=== PATIENT | female | born 1950 | race Caucasian/White ===

== ENCOUNTER 2019-12-22 13:02 | Day surgery (SDC) | payer MEDICARE, OTHER ==
[2019-12-22] MEDS: Nozin Nasal Sanitizer NASBOTH SCH ×2 (08:57→20:49)
[~2019-12-22 13:02] MED LIST: Acetaminophen 325 MG Tab PO PRN; Ketorolac 30 MG/ML SDV IVPUSH SCH; Lactated Ringers 1,000 ML IV SCH; Lactated Ringers 1,000 ML ONE; Magnesium Hydroxide 400 MG/5 ML Susp 30 ML Cup PO PRN; Midazolam 1 MG/ML 2 ML SDV ONE; Povidone-Iodine 10% Soln 118.25 ML Bottle ONE; Propofol 200 MG/20 ML SDV ONE; ceFAZolin 1 GM in Sodium Chloride 0.9% 50 ML IV SCH; ceFAZolin 2 GM in Premix Bag 1 BAG IV ONE; fentaNYL 100 MCG/2 ML SDV ONE
[2019-12-22] MEDS ORDERED: Albuterol 8 GM Inhaler INH PRN (13:08)
[2019-12-22] MEDS ORDERED: Morphine 2 MG/ML SYRINGE IVPUSH ONE (13:17)
[2019-12-22] MEDS ORDERED: Acetaminophen 1,000 MG in Premix Bag 1 BAG IV ONE (13:50)
[2019-12-22] MEDS ORDERED: Gabapentin 300 MG Cap PO SCH (14:00)
[2019-12-22] MEDS ORDERED: Acetaminophen/HYDROcodone 325-5 MG Tab PO PRN (14:00)
[2019-12-22] MEDS ORDERED: hydrOXYzine HCL 100 MG/2 ML SDV IM ONE (14:10)
--- NOTE | 2019-12-22 14:20 | CR ---
Knee 1V or 2V Rt CLINICAL HISTORY: Postop FINDINGS: Patient is status post recent 3 component total knee arthroplasty. Components appear well seated. There is intra-articular subcutaneous air. Impression: Postop knee arthroplasty
[2019-12-22] MEDS: Morphine 2 MG/ML SYRINGE IVPUSH PRN ×2 (15:05→20:43)
[2019-12-22] MEDS: Gabapentin 300 MG Cap PO SCH ×2 (16:08→20:49)
[2019-12-22] MEDS: Ketorolac 30 MG/ML SDV IVPUSH SCH (16:09)
[2019-12-22] MEDS: Acetaminophen/oxyCODONE 325-5 MG Tab PO PRN ×2 (17:14→22:04)
[2019-12-22] MEDS: Sodium Chloride 0.9% 1,000 ML IV SCH (17:16)
[2019-12-22] MEDS: ceFAZolin 1 GM in Premix Bag 1 BAG IV SCH (17:43)
[2019-12-22] MEDS: Gemfibrozil 600 MG Tab PO SCH (20:49)
[2019-12-22] MEDS: Docusate Sodium 100 MG Cap PO SCH (20:49)
[2019-12-22] MEDS ORDERED: Docusate Sodium 100 MG Cap PO SCH (21:00)
[2019-12-22] MEDS ORDERED: Non-Formulary Medication 1 Each (Travoprost [Travatan Z 0.004% Ophth Soln] 1 DROP) EYEBOTH SCH ×2 (21:00)
[2019-12-22] MEDS ORDERED: Gemfibrozil 600 MG Tab PO SCH (21:00)
[2019-12-23] MEDS: Ketorolac 30 MG/ML SDV IVPUSH SCH ×3 (00:55→16:09)
[2019-12-23] MEDS: Morphine 2 MG/ML SYRINGE IVPUSH PRN ×3 (00:58→11:55)
[2019-12-23] MEDS: ceFAZolin 1 GM in Premix Bag 1 BAG IV SCH ×2 (01:01→10:55)
[2019-12-23] MEDS: Acetaminophen/oxyCODONE 325-5 MG Tab PO PRN ×6 (01:55→22:42)
[2019-12-23] MEDS: Pantoprazole 40 MG Tab.CR PO SCH (07:22)
[2019-12-23] MEDS ORDERED: Pantoprazole 40 MG Tab.CR PO SCH (09:00)
[2019-12-23] MEDS ORDERED: Aspirin 325 MG Tab.EC PO SCH ×2 (09:00)
[2019-12-23] MEDS ORDERED: Furosemide 20 MG Tab PO SCH (09:00)
[2019-12-23] MEDS ORDERED: Enoxaparin 30 MG/0.3 ML Syringe SUBCUT SCH (09:00)
[2019-12-23] MEDS ORDERED: Losartan 50 MG Tab PO SCH (09:00)
[2019-12-23] MEDS ORDERED: amLODIPine 10 MG Tab PO SCH (09:00)
[2019-12-23] MEDS ORDERED: Isosorbide Mononitrate 30 MG Tab.ER PO SCH ×2 (09:00)
[2019-12-23] MEDS ORDERED: AMBRISENTAN 10 MG PO SCH ×2 (09:00)
[2019-12-23] MEDS ORDERED: Citalopram 20 MG Tab PO SCH ×2 (09:00)
[2019-12-23] MEDS: Nozin Nasal Sanitizer NASBOTH SCH ×2 (09:02→20:21)
[2019-12-23] MEDS: amLODIPine 10 MG Tab PO SCH (09:03)
[2019-12-23] MEDS: Aspirin 81 MG Tab.EC PO SCH (09:05)
[2019-12-23] MEDS: Losartan 50 MG Tab PO SCH (09:06)
[2019-12-23] MEDS: Furosemide 40 MG Tab PO SCH (09:07)
[2019-12-23] MEDS: Gemfibrozil 600 MG Tab PO SCH ×2 (09:07→20:28)
[2019-12-23] MEDS: Docusate Sodium 100 MG Cap PO SCH ×2 (09:07→20:22)
[2019-12-23] MEDS: Gabapentin 300 MG Cap PO SCH ×3 (09:08→20:29)
[2019-12-23] MEDS: Enoxaparin 30 MG/0.3 ML Syringe SUBCUT SCH (09:08)
[2019-12-23] MEDS: Sodium Chloride 0.9% 1,000 ML IV SCH ×2 (10:19→18:45)
[2019-12-23] MEDS: DORZOLAMIDE 2% EYEBOTH SCH ×4 (10:49→20:29)
[2019-12-23] MEDS: AMBRISENTAN 10 MG PO SCH (12:01)
[2019-12-23] MEDS: Cyclobenzaprine 10 MG Tab PO SCH ×2 (13:19→20:27)
[2019-12-23] MEDS: Citalopram 20 MG Tab PO SCH (20:27)
[2019-12-23] MEDS: OPTH EYEBOTH SCH (20:29)
[2019-12-23] MEDS: TRAVATAN Z 0.004% EYEBOTH SCH (20:29)
[2019-12-23] MEDS: Isosorbide Mononitrate 30 MG Tab.ER PO SCH (20:30)
[2019-12-24] MEDS: Ketorolac 30 MG/ML SDV IVPUSH SCH (00:47)
[2019-12-24] MEDS: Sodium Chloride 0.9% 1,000 ML IV SCH (02:45)
[2019-12-24] MEDS: Acetaminophen/oxyCODONE 325-5 MG Tab PO PRN ×4 (07:22→19:47)
[2019-12-24] MEDS: Pantoprazole 40 MG Tab.CR PO SCH (08:00)
[2019-12-24] MEDS: Nozin Nasal Sanitizer NASBOTH SCH ×2 (08:36→21:38)
[2019-12-24] MEDS: Enoxaparin 30 MG/0.3 ML Syringe SUBCUT SCH (08:37)
[2019-12-24] MEDS: Docusate Sodium 100 MG Cap PO SCH ×2 (08:41→21:40)
[2019-12-24] MEDS: Aspirin 81 MG Tab.EC PO SCH (08:42)
[2019-12-24] MEDS: Cyclobenzaprine 10 MG Tab PO SCH ×3 (08:42→21:41)
[2019-12-24] MEDS: Furosemide 40 MG Tab PO SCH (08:43)
[2019-12-24] MEDS: Gabapentin 300 MG Cap PO SCH ×3 (08:44→21:40)
[2019-12-24] MEDS: Gemfibrozil 600 MG Tab PO SCH ×2 (08:44→21:41)
[2019-12-24] MEDS: DORZOLAMIDE 2% EYEBOTH SCH ×2 (08:46→21:47)
[2019-12-24] MEDS: amLODIPine 10 MG Tab PO SCH (14:17)
[2019-12-24] MEDS: Losartan 50 MG Tab PO SCH (14:17)
[2019-12-24] MEDS: AMBRISENTAN 10 MG PO SCH (14:18)
[2019-12-24] MEDS: OPTH EYEBOTH SCH (21:40)
[2019-12-24] MEDS: TRAVATAN Z 0.004% EYEBOTH SCH (21:40)
[2019-12-24] MEDS: Isosorbide Mononitrate 30 MG Tab.ER PO SCH (21:41)
[2019-12-24] MEDS: Citalopram 20 MG Tab PO SCH (21:42)
[2019-12-25] MEDS: Acetaminophen/oxyCODONE 325-5 MG Tab PO PRN ×3 (04:08→13:07)
[2019-12-25] MEDS: Nozin Nasal Sanitizer NASBOTH SCH (08:58)
[2019-12-25] MEDS: Aspirin 81 MG Tab.EC PO SCH (08:59)
[2019-12-25] MEDS: Docusate Sodium 100 MG Cap PO SCH (08:59)
[2019-12-25] MEDS: Cyclobenzaprine 10 MG Tab PO SCH (08:59)
[2019-12-25] MEDS: Pantoprazole 40 MG Tab.CR PO SCH (08:59)
[2019-12-25] MEDS: Furosemide 40 MG Tab PO SCH (08:59)
[2019-12-25] MEDS: Gabapentin 300 MG Cap PO SCH (09:00)
[2019-12-25] MEDS: Gemfibrozil 600 MG Tab PO SCH (09:00)
[2019-12-25] MEDS: Enoxaparin 30 MG/0.3 ML Syringe SUBCUT SCH (09:00)
[2019-12-25] MEDS: amLODIPine 10 MG Tab PO SCH (09:01)
[2019-12-25] MEDS: Losartan 50 MG Tab PO SCH (09:01)
[2019-12-25] MEDS: DORZOLAMIDE 2% EYEBOTH SCH (09:01)
[2019-12-25] MEDS: AMBRISENTAN 10 MG PO SCH (09:01)
[2019-12-25 11:16] VITALS: BP 97/60; PULSE 81
--- NOTE | 2019-12-25 12:47 | PCM.SURGPN ---
- General Info Date of Service: 12/23/19 Date of Surgery/Procedure: 12/22/19 POD#: 1 Functional Status: Reports: Pain Controlled, Tolerating Diet, Ambulating, Urinating - Review of Systems General: Reports: No Symptoms HEENT: Reports: No Symptoms Pulmonary: Reports: No Symptoms Cardiovascular: Reports: No Symptoms Gastrointestinal: Reports: No Symptoms Genitourinary: Reports: No Symptoms Musculoskeletal: Reports: Leg Pain Skin: Reports: No Symptoms Neurological: Reports: No Symptoms Psychiatric: Reports: No Symptoms - Patient Data Vitals - Most Recent: Last Vital Signs Temp 36.1 C 12/25/19 11:15 Pulse 81 12/25/19 11:15 Resp 16 12/25/19 11:15 BP 97/60 12/25/19 11:15 Pulse Ox 92 L 12/25/19 11:15 Weight - Most Recent: 62.596 kg I&O - Last 24 Hours: Intake & Output 12/24/19 12/25/19 12/25/19 22:59 06:59 14:59 Intake Total 600 200 400 Balance 600 200 400 Med Orders - Current: Current Medications Acetaminophen (Tylenol) 650 mg PO Q4H PRN PRN Reason: Pain/Fever Hydrocodone Bitart/Acetaminophen ([place] 325-5 Mg) 1 tab PO Q3H PRN PRN Reason: Pain (mild 1-3) Albuterol (Ventolin Hfa) 0 gm INH Q4H PRN PRN Reason: Shortness of Breath Amlodipine Besylate (Norvasc) 10 mg PO DAILY [facility] Last Admin: 12/25/19 09:01 Dose: Not Given Aspirin (Halfprin) 81 mg PO DAILY [facility] Last Admin: 12/25/19 08:59 Dose: 81 mg Bandage/Support Products ( Nasal Drafter Landscape) 1 applic NASBOTH BID [facility] Last Admin: 12/25/19 08:58 Dose: 1 applicful Citalopram Hydrobromide (Celexa) 20 mg PO BEDTIME [facility] Last Admin: 12/24/19 21:42 Dose: 20 mg Cyclobenzaprine HCl (Flexeril) 10 mg PO TID [facility] Last Admin: 12/25/19 08:59 Dose: 10 mg Docusate Sodium (Colace) 100 mg PO BID [facility] Last Admin: 12/25/19 08:59 Dose: 100 mg Dorzolamide HCl (Trusopt 2% Ophth Soln) 0 ml EYEBOTH BID [facility] Last Admin: 12/25/19 09:01 Dose: Not Given Enoxaparin Sodium (Lovenox) 30 mg SUBCUT DAILY [facility] Last Admin: 12/25/19 09:00 Dose: 30 mg Furosemide (Lasix) 40 mg PO DAILY [facility] Last Admin: 12/25/19 08:59 Dose: 40 mg Gabapentin (Neurontin) 300 mg PO TID [facility] Last Admin: 12/25/19 09:00 Dose: 300 mg Gemfibrozil (Lopid) 600 mg PO BID [facility] Last Admin: 12/25/19 09:00 Dose: 600 mg Isosorbide Mononitrate (Imdur) 30 mg PO BEDTIME [facility] Last Admin: 12/24/19 21:41 Dose: 30 mg Losartan Potassium (Cozaar) 50 mg PO DAILY [facility] Last Admin: 12/25/19 09:01 Dose: Not Given Magnesium Hydroxide (Milk Of Magnesia) 30 ml PO BID PRN PRN Reason: Constipation Morphine Sulfate (Morphine) 2 mg IVPUSH Q1H PRN PRN Reason: Breakthrough Pain Last Admin: 12/23/19 11:55 Dose: 2 mg Oxycodone/Acetaminophen (Percocet 325-5 Mg) 2 tab PO Q4H PRN PRN Reason: Pain Last Admin: 12/25/19 08:23 Dose: 2 tab Pantoprazole Sodium (Protonix) 40 mg PO ACBREAKFAST [facility] Last Admin: 12/25/19 08:59 Dose: 40 mg Travatan Z 0.004% (Opth Soln (Ptom)) 0 each EYEBOTH BEDTIME [facility] Last Admin: 12/24/19 21:40 Dose: 1 each Ambrisentan 10mg Tab ((Ptom)) 0 each PO DAILY [facility] Last Admin: 12/25/19 09:01 Dose: Not Given Discontinued Medications Amlodipine Besylate (Norvasc) 10 mg PO DAILY [facility] Aspirin (Ecotrin) 81 mg PO DAILY [facility] Citalopram Hydrobromide (Celexa) 20 mg PO DAILY [facility] Citalopram Hydrobromide (Celexa) 20 mg PO DAILY [facility] Docusate Sodium (Colace) 100 mg PO BID [facility] Enoxaparin Sodium (Lovenox) 30 mg SUBCUT DAILY [facility] Fentanyl (Sublimaze) Confirm Administered Dose 100 mcg .ROUTE .K-MED ONE Stop: 12/22/19 08:39 Fentanyl (Sublimaze) Confirm Administered Dose 100 mcg .ROUTE .[facility] ONE Stop: 12/22/19 12:50 Furosemide (Lasix) 40 mg PO DAILY [facility] Gabapentin (Neurontin) 300 mg PO TID [facility] Last Admin: 12/22/19 15:00 Dose: Not Given Gemfibrozil (Lopid) 600 mg PO BID [facility] Hydroxyzine HCl (Vistaril) 50 mg IM ONETIME ONE Stop: 12/22/19 14:11 Last Admin: 12/22/19 14:16 Dose: 50 mg Cefazolin Sodium/Dextrose 2 gm (/ Premix) 50 mls @ 100 mls/hr IV ONETIME ONE Stop: 12/22/19 09:59 Last Admin: 12/22/19 10:57 Dose: 100 mls/hr Lactated Ringer's (Ringers, Lactated) 1,000 mls @ 75 mls/hr IV ASDIRECTED [facility] Last Admin: 12/22/19 08:49 Dose: 75 mls/hr Lactated Ringer's (Ringers, Lactated) Confirm Administered Dose 1,000 mls @ as directed .ROUTE .[facility] ONE Stop: 12/22/19 11:26 Tranexamic Acid 620 mg/ Sodium (Chloride) 56.2 mls @ 224.8 mls/hr IV ONETIME ONE Stop: 12/22/19 11:59 Last Admin: 12/22/19 12:09 Dose: 224.8 mls/hr Cefazolin Sodium 1 gm/ Sodium (Chloride) 50 mls @ 200 mls/hr IV Q8H [facility] Stop: 12/23/19 05:14 Last Admin: 12/22/19 14:59 Dose: Not Given Sodium Chloride (Normal Saline) 1,000 mls @ 125 mls/hr IV ASDIRECTED [facility] Last Admin: 12/24/19 02:45 Dose: 125 mls/hr Acetaminophen 1,000 mg/ Premix 100 mls @ 400 mls/hr IV NOW ONE Stop: 12/22/19 14:04 Last Admin: 12/22/19 13:54 Dose: 400 mls/hr Cefazolin Sodium/Dextrose 1 gm (/ Premix) 50 mls @ 100 mls/hr IV Q8H [facility] Stop: 12/23/19 10:29 Last Admin: 12/23/19 10:55 Dose: 100 mls/hr Isosorbide Mononitrate (Imdur) 30 mg PO DAILY [facility] Ketorolac Tromethamine (Toradol) 15 mg IVPUSH Q8H [facility] Stop: 12/23/19 21:01 Last Admin: 12/22/19 14:59 Dose: Not Given Ketorolac Tromethamine (Toradol) 15 mg IVPUSH Q8H [facility] Stop: 12/24/19 00:01 Last Admin: 12/24/19 00:47 Dose: 15 mg Losartan Potassium (Cozaar) 50 mg PO DAILY [facility] Midazolam HCl (Versed 1 Mg/Ml) Confirm Administered Dose 2 mg .ROUTE .STK-MED ONE Stop: 12/22/19 08:39 Morphine Sulfate (Morphine) 3 mg IVPUSH ONETIME ONE Stop: 12/22/19 13:18 Last Admin: 12/22/19 13:24 Dose: 3 mg Non-Formulary Medication (Ambrisentan [Ambrisentan]) 10 mg PO DAILY [facility] Non-Formulary Medication (Travoprost [Travatan Z 0.004% Ophth Soln]) 1 drop EYEBOTH BEDTIME [facility] Pantoprazole Sodium (Protonix) 40 mg PO DAILY [facility] Povidone Iodine (Betadine 10% Soln) Confirm Administered Dose 1 ml .ROUTE .STK- MED ONE Stop: 12/22/19 06:58 Last Admin: 12/22/19 11:49 Dose: 15 ml Propofol (Diprivan 20 Ml) Confirm Administered Dose 200 mg .ROUTE .STK-MED ONE Stop: 12/22/19 08:39 - Exam Wound/Incisions: Drainage (small spot of bloody drainage) General: Alert, Oriented HEENT: Pupils Equal Neck: Supple Lungs: Clear to Auscultation, Normal Respiratory Effort Cardiovascular: Regular Rate, Regular Rhythm GI/Abdominal Exam: Normal Bowel Sounds, Soft, Non-Tender, No Distention Extremities: Joint Swelling, Limited Range of Motion Skin: Warm, Dry Neurological: No New Focal Deficit Psy/Mental Status: Alert, Normal Affect, Normal Mood Sepsis Event Note - Evaluation Sepsis Screening Result: No Definite Risk - Focused Exam Vital Signs: Vital Signs Temp Temp Pulse Resp BP Pulse Ox 12/25/19 11:15 36.1 C 81 16 97/60 92 L 12/25/19 07:58 35.7 C L 79 16 104/56 L 97 12/25/19 03:27 36.6 C 75 16 97/54 L 95 Date Exam was Performed: 12/25/19 Time Exam was Performed: 12:41 - Problem List & Annotations (1) Osteoarthritis, knee SNOMED Code(s): 155546023 Code(s): M17.10 - UNILATERAL PRIMARY OSTEOARTHRITIS, UNSPECIFIED KNEE Status: Acute Current Visit: Yes Qualifiers: Osteoarthritis type: post-traumatic Laterality: right Qualified Code(s): M17.31 - Unilateral post-traumatic osteoarthritis, right knee (2) Status post total right knee replacement SNOMED Code(s): 7294371949095, 3943503309079 Code(s): Z96.651 - PRESENCE OF RIGHT ARTIFICIAL KNEE JOINT Status: Acute Current Visit: Yes (3) Closed fracture of lateral portion of right tibial plateau SNOMED Code(s): 642773256, 03649756186081548 Code(s): S82.121A - DISP FX OF LATERAL CONDYLE OF RIGHT TIBIA, INIT FOR CLOS FX Status: Acute Current Visit: No Qualifiers: Encounter type: subsequent encounter Fracture healing: with malunion Qualified Code(s): S82.121P - Displaced fracture of lateral condyle of right tibia, subsequent encounter for closed fracture with malunion - Problem List Review Problem List Initiated/Reviewed/Updated: Yes - My Orders Last 24 Hours: Active Orders 24 hr Category Date Time Status Ready for Discharge [RC] PER UNIT ROUTINE Care 12/25/19 12:40 Ordered Medication Orders Acetaminophen (Tylenol) 650 mg PO Q4H PRN PRN Reason: Pain/Fever Hydrocodone Bitart/Acetaminophen ([place] 325-5 Mg) 1 tab PO Q3H PRN PRN Reason: Pain (mild 1-3) Albuterol (Ventolin Hfa) 0 gm INH Q4H PRN PRN Reason: Shortness of Breath Amlodipine Besylate (Norvasc) 10 mg PO DAILY [facility] Last Admin: 12/25/19 09:01 Dose: Not Given Admin: 12/24/19 14:17 Dose: Admin: 12/23/19 09:03 Dose: 10 mg Aspirin (Halfprin) 81 mg PO DAILY [facility] Last Admin: 12/25/19 08:59 Dose: 81 mg Admin: 12/24/19 08:42 Dose: 81 mg Admin: 12/23/19 09:05 Dose: 81 mg Bandage/Support Products ( Nasal Drafter Landscape) 1 applic NASBOTH BID [facility] Last Admin: 12/25/19 08:58 Dose: 1 applicful Admin: 12/24/19 21:38 Dose: 1 applicful Admin: 12/24/19 08:36 Dose: 1 applicful Admin: 12/23/19 20:21 Dose: 1 applicful Admin: 12/23/19 09:02 Dose: 1 applicful Admin: 12/22/19 20:49 Dose: 1 applicful Admin: 12/22/19 08:57 Dose: 3 applicful Citalopram Hydrobromide (Celexa) 20 mg PO BEDTIME [facility] Last Admin: 12/24/19 21:42 Dose: 20 mg Admin: 12/23/19 20:27 Dose: 20 mg Cyclobenzaprine HCl (Flexeril) 10 mg PO TID [facility] Last Admin: 12/25/19 08:59 Dose: 10 mg Admin: 12/24/19 21:41 Dose: 10 mg Admin: 12/24/19 14:16 Dose: 10 mg Admin: 12/24/19 08:42 Dose: 10 mg Admin: 12/23/19 20:27 Dose: 10 mg Admin: 12/23/19 13:19 Dose: 10 mg Docusate Sodium (Colace) 100 mg PO BID [facility] Last Admin: 12/25/19 08:59 Dose: 100 mg Admin: 12/24/19 21:40 Dose: 100 mg Admin: 12/24/19 08:41 Dose: 100 mg Admin: 12/23/19 20:22 Dose: 100 mg Admin: 12/23/19 09:07 Dose: 100 mg Admin: 12/22/19 20:49 Dose: 100 mg Dorzolamide HCl (Trusopt 2% Ophth Soln) 0 ml EYEBOTH BID [facility] Last Admin: 12/25/19 09:01 Dose: Not Given Admin: 12/24/19 21:47 Dose: Admin: 12/24/19 08:46 Dose: Not Given Admin: 12/23/19 20:29 Dose: Admin: 12/23/19 12:03 Dose: Admin: 12/23/19 12:01 Dose: Admin: 12/23/19 10:49 Dose: Enoxaparin Sodium (Lovenox) 30 mg SUBCUT DAILY [facility] Last Admin: 12/25/19 09:00 Dose: 30 mg Admin: 12/24/19 08:37 Dose: 30 mg Admin: 12/23/19 09:08 Dose: 30 mg Furosemide (Lasix) 40 mg PO DAILY [facility] Last Admin: 12/25/19 08:59 Dose: 40 mg Admin: 12/24/19 08:43 Dose: 40 mg Admin: 12/23/19 09:07 Dose: 40 mg Gabapentin (Neurontin) 300 mg PO TID [facility] Last Admin: 12/25/19 09:00 Dose: 300 mg Admin: 12/24/19 21:40 Dose: 300 mg Admin: 12/24/19 14:16 Dose: 300 mg Admin: 12/24/19 08:44 Dose: 300 mg Admin: 12/23/19 20:29 Dose: 300 mg Admin: 12/23/19 13:20 Dose: 300 mg Admin: 12/23/19 09:08 Dose: 300 mg Admin: 12/22/19 20:49 Dose: 300 mg Admin: 12/22/19 16:08 Dose: 300 mg Gemfibrozil (Lopid) 600 mg PO BID [facility] Last Admin: 12/25/19 09:00 Dose: 600 mg Admin: 12/24/19 21:41 Dose: 600 mg Admin: 12/24/19 08:44 Dose: 600 mg Admin: 12/23/19 20:28 Dose: 600 mg Admin: 12/23/19 09:07 Dose: 600 mg Admin: 12/22/19 20:49 Dose: 600 mg Isosorbide Mononitrate (Imdur) 30 mg PO BEDTIME [facility] Last Admin: 12/24/19 21:41 Dose: 30 mg Admin: 12/23/19 20:30 Dose: 30 mg Losartan Potassium (Cozaar) 50 mg PO DAILY [facility] Last Admin: 12/25/19 09:01 Dose: Not Given Admin: 12/24/19 14:17 Dose: Admin: 12/23/19 09:06 Dose: 50 mg Magnesium Hydroxide (Milk Of Magnesia) 30 ml PO BID PRN PRN Reason: Constipation Morphine Sulfate (Morphine) 2 mg IVPUSH Q1H PRN PRN Reason: Breakthrough Pain Last Admin: 12/23/19 11:55 Dose: 2 mg Admin: 12/23/19 08:55 Dose: 2 mg Admin: 12/23/19 00:58 Dose: 2 mg Admin: 12/22/19 20:43 Dose: 2 mg Admin: 12/22/19 15:05 Dose: 2 mg Oxycodone/Acetaminophen (Percocet 325-5 Mg) 2 tab PO Q4H PRN PRN Reason: Pain Last Admin: 12/25/19 08:23 Dose: 2 tab Admin: 12/25/19 04:08 Dose: 2 tab Admin: 12/24/19 19:47 Dose: 2 tab Admin: 12/24/19 15:34 Dose: 2 tab Admin: 12/24/19 11:27 Dose: 2 tab Admin: 12/24/19 07:22 Dose: 2 tab Admin: 12/23/19 22:42 Dose: 2 tab Admin: 12/23/19 18:41 Dose: 2 tab Admin: 12/23/19 14:25 Dose: 2 tab Admin: 12/23/19 10:32 Dose: 2 tab Admin: 12/23/19 06:27 Dose: 2 tab Admin: 12/23/19 01:55 Dose: 2 tab Admin: 12/22/19 22:04 Dose: 2 tab Admin: 12/22/19 17:14 Dose: 2 tab Pantoprazole Sodium (Protonix) 40 mg PO ACBREAKFAST [facility] Last Admin: 12/25/19 08:59 Dose: 40 mg Admin: 12/24/19 08:00 Dose: 40 mg Admin: 12/23/19 07:22 Dose: 40 mg Travatan Z 0.004% (Opth Soln (Ptom)) 0 each EYEBOTH BEDTIME [facility] Last Admin: 12/24/19 21:40 Dose: 1 each Admin: 12/23/19 20:29 Dose: 1 each Ambrisentan 10mg Tab ((Ptom)) 0 each PO DAILY [facility] Last Admin: 12/25/19 09:01 Dose: Not Given Admin: 12/24/19 14:18 Dose: Admin: 12/23/19 12:01 Dose: 1 each - Assessment Assessment (Free Text/Narrative):: Pain not very well controlled post op. Has not been up much yet, poor mobility. Has been up in chair with increased pain. No nausea. - Plan Plan (Free Text/Narrative):: Continue PT, dressing changed, mild/mod swelling, small spot of bloody drainage , no active drainage, adjust medications
--- NOTE | 2019-12-25 12:53 | PCM.SURGPN ---
- General Info Date of Service: 12/24/19 Date of Surgery/Procedure: 12/22/19 POD#: 2 Functional Status: Reports: Tolerating Diet, Ambulating, Urinating - Review of Systems General: Reports: No Symptoms HEENT: Reports: No Symptoms Pulmonary: Reports: No Symptoms Cardiovascular: Reports: No Symptoms Gastrointestinal: Reports: No Symptoms Genitourinary: Reports: No Symptoms Musculoskeletal: Reports: Leg Pain, Joint Swelling Skin: Reports: No Symptoms Neurological: Reports: No Symptoms Psychiatric: Reports: No Symptoms - Patient Data Vitals - Most Recent: Last Vital Signs Temp 36.1 C 12/25/19 11:15 Pulse 81 12/25/19 11:15 Resp 16 12/25/19 11:15 BP 97/60 12/25/19 11:15 Pulse Ox 92 L 12/25/19 11:15 Weight - Most Recent: 62.596 kg I&O - Last 24 Hours: Intake & Output 12/24/19 12/25/19 12/25/19 22:59 06:59 14:59 Intake Total 600 200 400 Balance 600 200 400 Med Orders - Current: Current Medications Acetaminophen (Tylenol) 650 mg PO Q4H PRN PRN Reason: Pain/Fever Hydrocodone Bitart/Acetaminophen (Tarzana 325-5 Mg) 1 tab PO Q3H PRN PRN Reason: Pain (mild 1-3) Albuterol (Ventolin Hfa) 0 gm INH Q4H PRN PRN Reason: Shortness of Breath Amlodipine Besylate (Norvasc) 10 mg PO DAILY [facility] Last Admin: 12/25/19 09:01 Dose: Not Given Aspirin (Halfprin) 81 mg PO DAILY [facility] Last Admin: 12/25/19 08:59 Dose: 81 mg Bandage/Support Products ( Nasal Foundry Technician) 1 applic NASBOTH BID [facility] Last Admin: 12/25/19 08:58 Dose: 1 applicful Citalopram Hydrobromide (Celexa) 20 mg PO BEDTIME [facility] Last Admin: 12/24/19 21:42 Dose: 20 mg Cyclobenzaprine HCl (Flexeril) 10 mg PO TID [facility] Last Admin: 12/25/19 08:59 Dose: 10 mg Docusate Sodium (Colace) 100 mg PO BID [facility] Last Admin: 12/25/19 08:59 Dose: 100 mg Dorzolamide HCl (Trusopt 2% Ophth Soln) 0 ml EYEBOTH BID [facility] Last Admin: 12/25/19 09:01 Dose: Not Given Enoxaparin Sodium (Lovenox) 30 mg SUBCUT DAILY [facility] Last Admin: 12/25/19 09:00 Dose: 30 mg Furosemide (Lasix) 40 mg PO DAILY [facility] Last Admin: 12/25/19 08:59 Dose: 40 mg Gabapentin (Neurontin) 300 mg PO TID [facility] Last Admin: 12/25/19 09:00 Dose: 300 mg Gemfibrozil (Lopid) 600 mg PO BID [facility] Last Admin: 12/25/19 09:00 Dose: 600 mg Isosorbide Mononitrate (Imdur) 30 mg PO BEDTIME [facility] Last Admin: 12/24/19 21:41 Dose: 30 mg Losartan Potassium (Cozaar) 50 mg PO DAILY [facility] Last Admin: 12/25/19 09:01 Dose: Not Given Magnesium Hydroxide (Milk Of Magnesia) 30 ml PO BID PRN PRN Reason: Constipation Morphine Sulfate (Morphine) 2 mg IVPUSH Q1H PRN PRN Reason: Breakthrough Pain Last Admin: 12/23/19 11:55 Dose: 2 mg Oxycodone/Acetaminophen (Percocet 325-5 Mg) 2 tab PO Q4H PRN PRN Reason: Pain Last Admin: 12/25/19 08:23 Dose: 2 tab Pantoprazole Sodium (Protonix) 40 mg PO ACBREAKFAST [facility] Last Admin: 12/25/19 08:59 Dose: 40 mg Travatan Z 0.004% (Opth Soln (Ptom)) 0 each EYEBOTH BEDTIME [facility] Last Admin: 12/24/19 21:40 Dose: 1 each Ambrisentan 10mg Tab ((Ptom)) 0 each PO DAILY [facility] Last Admin: 12/25/19 09:01 Dose: Not Given Discontinued Medications Amlodipine Besylate (Norvasc) 10 mg PO DAILY [facility] Aspirin (Ecotrin) 81 mg PO DAILY [facility] Citalopram Hydrobromide (Celexa) 20 mg PO DAILY [facility] Citalopram Hydrobromide (Celexa) 20 mg PO DAILY [facility] Docusate Sodium (Colace) 100 mg PO BID [facility] Enoxaparin Sodium (Lovenox) 30 mg SUBCUT DAILY [facility] Fentanyl (Sublimaze) Confirm Administered Dose 100 mcg .ROUTE .K-MED ONE Stop: 12/22/19 08:39 Fentanyl (Sublimaze) Confirm Administered Dose 100 mcg .ROUTE .[facility] ONE Stop: 12/22/19 12:50 Furosemide (Lasix) 40 mg PO DAILY [facility] Gabapentin (Neurontin) 300 mg PO TID [facility] Last Admin: 12/22/19 15:00 Dose: Not Given Gemfibrozil (Lopid) 600 mg PO BID [facility] Hydroxyzine HCl (Vistaril) 50 mg IM ONETIME ONE Stop: 12/22/19 14:11 Last Admin: 12/22/19 14:16 Dose: 50 mg Cefazolin Sodium/Dextrose 2 gm (/ Premix) 50 mls @ 100 mls/hr IV ONETIME ONE Stop: 12/22/19 09:59 Last Admin: 12/22/19 10:57 Dose: 100 mls/hr Lactated Ringer's (Ringers, Lactated) 1,000 mls @ 75 mls/hr IV ASDIRECTED [facility] Last Admin: 12/22/19 08:49 Dose: 75 mls/hr Lactated Ringer's (Ringers, Lactated) Confirm Administered Dose 1,000 mls @ as directed .ROUTE .[facility] ONE Stop: 12/22/19 11:26 Tranexamic Acid 620 mg/ Sodium (Chloride) 56.2 mls @ 224.8 mls/hr IV ONETIME ONE Stop: 12/22/19 11:59 Last Admin: 12/22/19 12:09 Dose: 224.8 mls/hr Cefazolin Sodium 1 gm/ Sodium (Chloride) 50 mls @ 200 mls/hr IV Q8H [facility] Stop: 12/23/19 05:14 Last Admin: 12/22/19 14:59 Dose: Not Given Sodium Chloride (Normal Saline) 1,000 mls @ 125 mls/hr IV ASDIRECTED [facility] Last Admin: 12/24/19 02:45 Dose: 125 mls/hr Acetaminophen 1,000 mg/ Premix 100 mls @ 400 mls/hr IV NOW ONE Stop: 12/22/19 14:04 Last Admin: 12/22/19 13:54 Dose: 400 mls/hr Cefazolin Sodium/Dextrose 1 gm (/ Premix) 50 mls @ 100 mls/hr IV Q8H [facility] Stop: 12/23/19 10:29 Last Admin: 12/23/19 10:55 Dose: 100 mls/hr Isosorbide Mononitrate (Imdur) 30 mg PO DAILY [facility] Ketorolac Tromethamine (Toradol) 15 mg IVPUSH Q8H [facility] Stop: 12/23/19 21:01 Last Admin: 12/22/19 14:59 Dose: Not Given Ketorolac Tromethamine (Toradol) 15 mg IVPUSH Q8H [facility] Stop: 12/24/19 00:01 Last Admin: 12/24/19 00:47 Dose: 15 mg Losartan Potassium (Cozaar) 50 mg PO DAILY [facility] Midazolam HCl (Versed 1 Mg/Ml) Confirm Administered Dose 2 mg .ROUTE .STK-MED ONE Stop: 12/22/19 08:39 Morphine Sulfate (Morphine) 3 mg IVPUSH ONETIME ONE Stop: 12/22/19 13:18 Last Admin: 12/22/19 13:24 Dose: 3 mg Non-Formulary Medication (Ambrisentan [Ambrisentan]) 10 mg PO DAILY [facility] Non-Formulary Medication (Travoprost [Travatan Z 0.004% Ophth Soln]) 1 drop EYEBOTH BEDTIME [facility] Pantoprazole Sodium (Protonix) 40 mg PO DAILY [facility] Povidone Iodine (Betadine 10% Soln) Confirm Administered Dose 1 ml .ROUTE .STK- MED ONE Stop: 12/22/19 06:58 Last Admin: 12/22/19 11:49 Dose: 15 ml Propofol (Diprivan 20 Ml) Confirm Administered Dose 200 mg .ROUTE .STK-MED ONE Stop: 12/22/19 08:39 - Exam Wound/Incisions: Drainage (small spot of drainage inferior incision after getting up yesterday) General: Alert, Oriented HEENT: Pupils Equal Neck: Supple Cardiovascular: Regular Rate, Regular Rhythm GI/Abdominal Exam: Normal Bowel Sounds, Soft, Non-Tender, No Distention Extremities: Joint Swelling, Limited Range of Motion Skin: Warm, Dry Neurological: No New Focal Deficit Psy/Mental Status: Alert, Normal Affect, Normal Mood Sepsis Event Note - Evaluation Sepsis Screening Result: No Definite Risk - Focused Exam Vital Signs: Vital Signs Temp Temp Pulse Resp BP Pulse Ox 12/25/19 11:15 36.1 C 81 16 97/60 92 L 12/25/19 07:58 35.7 C L 79 16 104/56 L 97 12/25/19 03:27 36.6 C 75 16 97/54 L 95 Date Exam was Performed: 12/25/19 Time Exam was Performed: 12:47 - Problem List & Annotations (1) Osteoarthritis, knee SNOMED Code(s): 404607704 Code(s): M17.10 - UNILATERAL PRIMARY OSTEOARTHRITIS, UNSPECIFIED KNEE Status: Acute Current Visit: Yes Qualifiers: Osteoarthritis type: post-traumatic Laterality: right Qualified Code(s): M17.31 - Unilateral post-traumatic osteoarthritis, right knee (2) Status post total right knee replacement SNOMED Code(s): 1238280422563, 3762962311001 Code(s): Z96.651 - PRESENCE OF RIGHT ARTIFICIAL KNEE JOINT Status: Acute Current Visit: Yes (3) Closed fracture of lateral portion of right tibial plateau SNOMED Code(s): 788728188, 31921628797770304 Code(s): S82.121A - DISP FX OF LATERAL CONDYLE OF RIGHT TIBIA, INIT FOR CLOS FX Status: Acute Current Visit: No Qualifiers: Encounter type: subsequent encounter Fracture healing: with malunion Qualified Code(s): S82.121P - Displaced fracture of lateral condyle of right tibia, subsequent encounter for closed fracture with malunion - Problem List Review Problem List Initiated/Reviewed/Updated: Yes - My Orders Last 24 Hours: Active Orders 24 hr Category Date Time Status Ready for Discharge [RC] PER UNIT ROUTINE Care 12/25/19 12:40 Ordered Medication Orders Acetaminophen (Tylenol) 650 mg PO Q4H PRN PRN Reason: Pain/Fever Hydrocodone Bitart/Acetaminophen (Tarzana 325-5 Mg) 1 tab PO Q3H PRN PRN Reason: Pain (mild 1-3) Albuterol (Ventolin Hfa) 0 gm INH Q4H PRN PRN Reason: Shortness of Breath Amlodipine Besylate (Norvasc) 10 mg PO DAILY [facility] Last Admin: 12/25/19 09:01 Dose: Not Given Admin: 12/24/19 14:17 Dose: Admin: 12/23/19 09:03 Dose: 10 mg Aspirin (Halfprin) 81 mg PO DAILY [facility] Last Admin: 12/25/19 08:59 Dose: 81 mg Admin: 12/24/19 08:42 Dose: 81 mg Admin: 12/23/19 09:05 Dose: 81 mg Bandage/Support Products ( Nasal Foundry Technician) 1 applic NASBOTH BID [facility] Last Admin: 12/25/19 08:58 Dose: 1 applicful Admin: 12/24/19 21:38 Dose: 1 applicful Admin: 12/24/19 08:36 Dose: 1 applicful Admin: 12/23/19 20:21 Dose: 1 applicful Admin: 12/23/19 09:02 Dose: 1 applicful Admin: 12/22/19 20:49 Dose: 1 applicful Admin: 12/22/19 08:57 Dose: 3 applicful Citalopram Hydrobromide (Celexa) 20 mg PO BEDTIME [facility] Last Admin: 12/24/19 21:42 Dose: 20 mg Admin: 12/23/19 20:27 Dose: 20 mg Cyclobenzaprine HCl (Flexeril) 10 mg PO TID [facility] Last Admin: 12/25/19 08:59 Dose: 10 mg Admin: 12/24/19 21:41 Dose: 10 mg Admin: 12/24/19 14:16 Dose: 10 mg Admin: 12/24/19 08:42 Dose: 10 mg Admin: 12/23/19 20:27 Dose: 10 mg Admin: 12/23/19 13:19 Dose: 10 mg Docusate Sodium (Colace) 100 mg PO BID [facility] Last Admin: 12/25/19 08:59 Dose: 100 mg Admin: 12/24/19 21:40 Dose: 100 mg Admin: 12/24/19 08:41 Dose: 100 mg Admin: 12/23/19 20:22 Dose: 100 mg Admin: 12/23/19 09:07 Dose: 100 mg Admin: 12/22/19 20:49 Dose: 100 mg Dorzolamide HCl (Trusopt 2% Ophth Soln) 0 ml EYEBOTH BID [facility] Last Admin: 12/25/19 09:01 Dose: Not Given Admin: 12/24/19 21:47 Dose: Admin: 12/24/19 08:46 Dose: Not Given Admin: 12/23/19 20:29 Dose: Admin: 12/23/19 12:03 Dose: Admin: 12/23/19 12:01 Dose: Admin: 12/23/19 10:49 Dose: Enoxaparin Sodium (Lovenox) 30 mg SUBCUT DAILY [facility] Last Admin: 12/25/19 09:00 Dose: 30 mg Admin: 12/24/19 08:37 Dose: 30 mg Admin: 12/23/19 09:08 Dose: 30 mg Furosemide (Lasix) 40 mg PO DAILY [facility] Last Admin: 12/25/19 08:59 Dose: 40 mg Admin: 12/24/19 08:43 Dose: 40 mg Admin: 12/23/19 09:07 Dose: 40 mg Gabapentin (Neurontin) 300 mg PO TID [facility] Last Admin: 12/25/19 09:00 Dose: 300 mg Admin: 12/24/19 21:40 Dose: 300 mg Admin: 12/24/19 14:16 Dose: 300 mg Admin: 12/24/19 08:44 Dose: 300 mg Admin: 12/23/19 20:29 Dose: 300 mg Admin: 12/23/19 13:20 Dose: 300 mg Admin: 12/23/19 09:08 Dose: 300 mg Admin: 12/22/19 20:49 Dose: 300 mg Admin: 12/22/19 16:08 Dose: 300 mg Gemfibrozil (Lopid) 600 mg PO BID [facility] Last Admin: 12/25/19 09:00 Dose: 600 mg Admin: 12/24/19 21:41 Dose: 600 mg Admin: 12/24/19 08:44 Dose: 600 mg Admin: 12/23/19 20:28 Dose: 600 mg Admin: 12/23/19 09:07 Dose: 600 mg Admin: 12/22/19 20:49 Dose: 600 mg Isosorbide Mononitrate (Imdur) 30 mg PO BEDTIME [facility] Last Admin: 12/24/19 21:41 Dose: 30 mg Admin: 12/23/19 20:30 Dose: 30 mg Losartan Potassium (Cozaar) 50 mg PO DAILY [facility] Last Admin: 12/25/19 09:01 Dose: Not Given Admin: 12/24/19 14:17 Dose: Admin: 12/23/19 09:06 Dose: 50 mg Magnesium Hydroxide (Milk Of Magnesia) 30 ml PO BID PRN PRN Reason: Constipation Morphine Sulfate (Morphine) 2 mg IVPUSH Q1H PRN PRN Reason: Breakthrough Pain Last Admin: 12/23/19 11:55 Dose: 2 mg Admin: 12/23/19 08:55 Dose: 2 mg Admin: 12/23/19 00:58 Dose: 2 mg Admin: 12/22/19 20:43 Dose: 2 mg Admin: 12/22/19 15:05 Dose: 2 mg Oxycodone/Acetaminophen (Percocet 325-5 Mg) 2 tab PO Q4H PRN PRN Reason: Pain Last Admin: 12/25/19 08:23 Dose: 2 tab Admin: 12/25/19 04:08 Dose: 2 tab Admin: 12/24/19 19:47 Dose: 2 tab Admin: 12/24/19 15:34 Dose: 2 tab Admin: 12/24/19 11:27 Dose: 2 tab Admin: 12/24/19 07:22 Dose: 2 tab Admin: 12/23/19 22:42 Dose: 2 tab Admin: 12/23/19 18:41 Dose: 2 tab Admin: 12/23/19 14:25 Dose: 2 tab Admin: 12/23/19 10:32 Dose: 2 tab Admin: 12/23/19 06:27 Dose: 2 tab Admin: 12/23/19 01:55 Dose: 2 tab Admin: 12/22/19 22:04 Dose: 2 tab Admin: 12/22/19 17:14 Dose: 2 tab Pantoprazole Sodium (Protonix) 40 mg PO ACBREAKFAST [facility] Last Admin: 12/25/19 08:59 Dose: 40 mg Admin: 12/24/19 08:00 Dose: 40 mg Admin: 12/23/19 07:22 Dose: 40 mg Travatan Z 0.004% (Opth Soln (Ptom)) 0 each EYEBOTH BEDTIME [facility] Last Admin: 12/24/19 21:40 Dose: 1 each Admin: 12/23/19 20:29 Dose: 1 each Ambrisentan 10mg Tab ((Ptom)) 0 each PO DAILY [facility] Last Admin: 12/25/19 09:01 Dose: Not Given Admin: 12/24/19 14:18 Dose: Admin: 12/23/19 12:01 Dose: 1 each - Assessment Assessment (Free Text/Narrative):: Doing a little better today, has been up for short distances, limited ROM, getting independent with transfers out of bed, pain better controlled - Plan Plan (Free Text/Narrative):: Continue PT, anticipate discharge to home tomorrow with outpatient PT.
--- NOTE | 2019-12-25 13:02 | PCM.DCSUM1 ---
Discharge Summary - Hospital Course HPI Initial Comments: 69 year old female with a history of lateral tibial plateau fracture with depressed articular fracture and subsequent valgus collapse admitted for total knee arthroplasty. Diagnosis: Stroke: No Modified [place] Scale: No Symptoms at All Modified Hari Scale Score: 0 - Discharge Data Discharge Date: 12/25/19 Discharge Disposition: Home, Self-Care 01 Condition: Good - Referral to Home Health Date of Face to Face Encounter: 12/25/19 Primary Care Physician: Diane Goins MD - Discharge Diagnosis/Problem(s) (1) Osteoarthritis, knee SNOMED Code(s): 550651701 ICD Code: M17.10 - UNILATERAL PRIMARY OSTEOARTHRITIS, UNSPECIFIED KNEE Status: Acute Current Visit: Yes Qualifiers: Osteoarthritis type: post-traumatic Laterality: right Qualified Code(s): M17.31 - Unilateral post-traumatic osteoarthritis, right knee (2) Status post total right knee replacement SNOMED Code(s): 2278032299053, 5450647945327 ICD Code: Z96.651 - PRESENCE OF RIGHT ARTIFICIAL KNEE JOINT Status: Acute Current Visit: Yes (3) Closed fracture of lateral portion of right tibial plateau SNOMED Code(s): 740012812, [id number] ICD Code: S82.121A - DISP FX OF LATERAL CONDYLE OF RIGHT TIBIA, INIT FOR CLOS FX Status: Acute Current Visit: No Qualifiers: Encounter type: subsequent encounter Fracture healing: with malunion Qualified Code(s): S82.121P - Displaced fracture of lateral condyle of right tibia, subsequent encounter for closed fracture with malunion - Patient Summary/Data Operative Procedure(s) Performed: Right total knee arthroplasty Consults: Consultations 12/22/19 12:58 OT Evaluation and Treatment [CONS] Routine Please Evaluate and Treat. OT Reason for Consult: ADL's This query below is only for informational purposes and is not editable. 12/22/19 13:02 Consult to Case Management/Footwear Sales Representative [CONS] Routine Comment: Physician Instructions: Service(s) to be Consulted: Case Management Reason for Consult: Plan for Discharge PT Evaluation and Treatment [CONS] Routine Please Evaluate and Treat. PT Reason for Consult: Post op Ortho Surgery Special Instructions: ambulation and ROM This query below is only for informational purposes and is not editable. PT Evaluation and Treatment [CONS] Routine Please Evaluate and Treat. PT Reason for Consult: Post op Ortho Surgery Knee Pending Discharge: Yes, 1- 2 days Special Instructions: Schedule first outpatient PT appointment in 3-5 day post discharge. This query below is only for informational purposes and is not editable. Hospital Course: Tolerated procedure well but had difficulty with pain control afterward. Slight amount of bleed thru on dressing and dressing changed on POD #1. Initially with slow progress with PT, limited ROM and poor mobility. Was able to progress over two days and achieve independence with transfers and was walking > 170 feet with walker prior to discharge. Dressing changed again prior to discharge, no active drainage, moderate swelling. Plan discharge to home with outpatient PT. - Patient Instructions Diet: Usual Diet as Tolerated Activity: Apply Ice, As Tolerated, Full Weight Bearing Driving: Do Not Drive Showering/Bathing: May Shower Wound/Incision Care: Keep Operative Site/Wound Site Clean and Dry Notify Provider of: Fever, Increased Pain, Swelling and Redness, Drainage, Nausea and/or Vomiting - Discharge Plan *PRESCRIPTION DRUG MONITORING PROGRAM REVIEWED*: No *COPY OF PRESCRIPTION DRUG MONITORING REPORT IN PATIENT SANDRA: No Prescriptions/Med Rec: oxyCODONE HCl/Acetaminophen [Percocet 5-325 mg Tablet] 2 each PO Q6HR PRN #50 tablet PRN Reason: Pain Enoxaparin Sodium [Lovenox] 30 mg SQ DAILY 21 Days #21 syringe Home Medications: Home Meds Aspirin [Ecotrin EC] 81 mg PO DAILY 07/16/17 [History] Dorzolamide [Trusopt 2% Ophth Soln] 1 drop EYEBOTH BID 07/16/17 [History] Fish Oil/[place]-3 Fatty Acids [Fish Oil 1,000 MG] 1 tab PO DAILY 07/16/17 [ History] Flaxseed Oil [Flaxseed] 1,000 mg PO BID 07/16/17 [History] Furosemide [Lasix] 40 mg PO DAILY 07/16/17 [History] Gabapentin [Neurontin] 300 mg PO TID 07/16/17 [History] Gemfibrozil [Lopid] 600 mg PO BID 07/16/17 [History] Glucosamine/D3/Boswellia Yael [Glucosamine Complex Tablet] 1 tab PO BID [History] Losartan [Cozaar] 50 mg PO DAILY 07/16/17 [History] Multivitamin [Multivitamins] 1 tab PO DAILY 07/16/17 [History] Pantoprazole Sodium [Protonix] 40 mg PO DAILY 07/16/17 [History] Travoprost [Travatan Z 0.004% Ophth Soln] 1 drop EYEBOTH BEDTIME 07/16/17 [ History] amLODIPine [Norvasc] 10 mg PO DAILY 07/16/17 [History] Acetaminophen [Tylenol Arthritis Pain] 650 mg PO Q12HR 11/21/18 [History] Citalopram [Citalopram HBr] 20 mg PO DAILY 11/21/18 [History] Naproxen 500 mg PO BID PRN 11/21/18 [History] [place]-3/DHA/Epa/Fish Oil [Fish Oil 1,000 mg Softgel] 1 each PO DAILY 11/21/18 [ History] Albuterol Sulfate [Proair Hfa] 1 - 2 puff INH Q4H PRN 11/20/19 [History] Ambrisentan 10 mg PO DAILY 11/20/19 [History] Isosorbide Mononitrate [Imdur] 30 mg PO BEDTIME 11/20/19 [History] Cyanocobalamin (Vitamin B12) [Vitamin B12] 1,000 mcg IJ .Q3M 12/18/19 [History] Enoxaparin Sodium [Lovenox] 30 mg SQ DAILY 21 Days #21 syringe 12/25/19 [Rx] oxyCODONE HCl/Acetaminophen [Percocet 5-325 mg Tablet] 2 each PO Q6HR PRN #50 tablet 12/25/19 [Rx] Oxygen Therapy Mode: Room Air Referrals: Lg Robles MD [Physician] - 01/06/20 10:30 am Physical Therapy,Template [Physical Therapist] - 12/29/19 1:30 pm (YOUR PHYSICAL THERAPY APPOINTMENT SCHEDULED IN [facility]ALKER. PLEASE ARRIVE 15 MINUTES EARLY.) - Discharge Summary/Plan Comment DC Time >30 min.: Yes - Patient Data Vitals - Most Recent: Last Vital Signs Temp 36.1 C 12/25/19 11:15 Pulse 81 12/25/19 11:15 Resp 16 12/25/19 11:15 BP 97/60 12/25/19 11:15 Pulse Ox 92 L 12/25/19 11:15 Weight - Most Recent: 62.596 kg I&O - Last 24 hours: Intake & Output 12/24/19 12/25/19 12/25/19 22:59 06:59 14:59 Intake Total 600 200 400 Balance 600 200 400 Med Orders - Current: Current Medications Acetaminophen (Tylenol) 650 mg PO Q4H PRN PRN Reason: Pain/Fever Hydrocodone Bitart/Acetaminophen ([place] 325-5 Mg) 1 tab PO Q3H PRN PRN Reason: Pain (mild 1-3) Albuterol (Ventolin Hfa) 0 gm INH Q4H PRN PRN Reason: Shortness of Breath Amlodipine Besylate (Norvasc) 10 mg PO DAILY [facility] Last Admin: 12/25/19 09:01 Dose: Not Given Aspirin (Halfprin) 81 mg PO DAILY [facility] Last Admin: 12/25/19 08:59 Dose: 81 mg Bandage/Support Products ( Nasal Acid Cutter) 1 applic NASBOTH BID [facility] Last Admin: 12/25/19 08:58 Dose: 1 applicful Citalopram Hydrobromide (Celexa) 20 mg PO BEDTIME [facility] Last Admin: 12/24/19 21:42 Dose: 20 mg Cyclobenzaprine HCl (Flexeril) 10 mg PO TID [facility] Last Admin: 12/25/19 08:59 Dose: 10 mg Docusate Sodium (Colace) 100 mg PO BID [facility] Last Admin: 12/25/19 08:59 Dose: 100 mg Dorzolamide HCl (Trusopt 2% Ophth Soln) 0 ml EYEBOTH BID [facility] Last Admin: 12/25/19 09:01 Dose: Not Given Enoxaparin Sodium (Lovenox) 30 mg SUBCUT DAILY [facility] Last Admin: 12/25/19 09:00 Dose: 30 mg Furosemide (Lasix) 40 mg PO DAILY [facility] Last Admin: 12/25/19 08:59 Dose: 40 mg Gabapentin (Neurontin) 300 mg PO TID [facility] Last Admin: 12/25/19 09:00 Dose: 300 mg Gemfibrozil (Lopid) 600 mg PO BID [facility] Last Admin: 12/25/19 09:00 Dose: 600 mg Isosorbide Mononitrate (Imdur) 30 mg PO BEDTIME [facility] Last Admin: 12/24/19 21:41 Dose: 30 mg Losartan Potassium (Cozaar) 50 mg PO DAILY [facility] Last Admin: 12/25/19 09:01 Dose: Not Given Magnesium Hydroxide (Milk Of Magnesia) 30 ml PO BID PRN PRN Reason: Constipation Morphine Sulfate (Morphine) 2 mg IVPUSH Q1H PRN PRN Reason: Breakthrough Pain Last Admin: 12/23/19 11:55 Dose: 2 mg Oxycodone/Acetaminophen (Percocet 325-5 Mg) 2 tab PO Q4H PRN PRN Reason: Pain Last Admin: 12/25/19 08:23 Dose: 2 tab Pantoprazole Sodium (Protonix) 40 mg PO ACBREAKFAST [facility] Last Admin: 12/25/19 08:59 Dose: 40 mg Travatan Z 0.004% (Opth Soln (Ptom)) 0 each EYEBOTH BEDTIME [facility] Last Admin: 12/24/19 21:40 Dose: 1 each Ambrisentan 10mg Tab ((Ptom)) 0 each PO DAILY [facility] Last Admin: 12/25/19 09:01 Dose: Not Given Discontinued Medications Amlodipine Besylate (Norvasc) 10 mg PO DAILY [facility] Aspirin (Ecotrin) 81 mg PO DAILY [facility] Citalopram Hydrobromide (Celexa) 20 mg PO DAILY [facility] Citalopram Hydrobromide (Celexa) 20 mg PO DAILY [facility] Docusate Sodium (Colace) 100 mg PO BID [facility] Enoxaparin Sodium (Lovenox) 30 mg SUBCUT DAILY [facility] Fentanyl (Sublimaze) Confirm Administered Dose 100 mcg .ROUTE .STK-MED ONE Stop: 12/22/19 08:39 Fentanyl (Sublimaze) Confirm Administered Dose 100 mcg .ROUTE .STK-MED ONE Stop: 12/22/19 12:50 Furosemide (Lasix) 40 mg PO DAILY [facility] Gabapentin (Neurontin) 300 mg PO TID [facility] Last Admin: 12/22/19 15:00 Dose: Not Given Gemfibrozil (Lopid) 600 mg PO BID [facility] Hydroxyzine HCl (Vistaril) 50 mg IM ONETIME ONE Stop: 12/22/19 14:11 Last Admin: 12/22/19 14:16 Dose: 50 mg Cefazolin Sodium/Dextrose 2 gm (/ Premix) 50 mls @ 100 mls/hr IV ONETIME ONE Stop: 12/22/19 09:59 Last Admin: 12/22/19 10:57 Dose: 100 mls/hr Lactated Ringer's (Ringers, Lactated) 1,000 mls @ 75 mls/hr IV ASDIRECTED [facility] Last Admin: 12/22/19 08:49 Dose: 75 mls/hr Lactated Ringer's (Ringers, Lactated) Confirm Administered Dose 1,000 mls @ as directed .ROUTE .STK-MED ONE Stop: 12/22/19 11:26 Tranexamic Acid 620 mg/ Sodium (Chloride) 56.2 mls @ 224.8 mls/hr IV ONETIME ONE Stop: 12/22/19 11:59 Last Admin: 12/22/19 12:09 Dose: 224.8 mls/hr Cefazolin Sodium 1 gm/ Sodium (Chloride) 50 mls @ 200 mls/hr IV Q8H [facility] Stop: 12/23/19 05:14 Last Admin: 12/22/19 14:59 Dose: Not Given Sodium Chloride (Normal Saline) 1,000 mls @ 125 mls/hr IV ASDIRECTED [facility] Last Admin: 12/24/19 02:45 Dose: 125 mls/hr Acetaminophen 1,000 mg/ Premix 100 mls @ 400 mls/hr IV NOW ONE Stop: 12/22/19 14:04 Last Admin: 12/22/19 13:54 Dose: 400 mls/hr Cefazolin Sodium/Dextrose 1 gm (/ Premix) 50 mls @ 100 mls/hr IV Q8H [facility] Stop: 12/23/19 10:29 Last Admin: 12/23/19 10:55 Dose: 100 mls/hr Isosorbide Mononitrate (Imdur) 30 mg PO DAILY [facility] Ketorolac Tromethamine (Toradol) 15 mg IVPUSH Q8H [facility] Stop: 12/23/19 21:01 Last Admin: 12/22/19 14:59 Dose: Not Given Ketorolac Tromethamine (Toradol) 15 mg IVPUSH Q8H [facility] Stop: 12/24/19 00:01 Last Admin: 12/24/19 00:47 Dose: 15 mg Losartan Potassium (Cozaar) 50 mg PO DAILY [facility] Midazolam HCl (Versed 1 Mg/Ml) Confirm Administered Dose 2 mg .ROUTE .STK-MED ONE Stop: 12/22/19 08:39 Morphine Sulfate (Morphine) 3 mg IVPUSH ONETIME ONE Stop: 12/22/19 13:18 Last Admin: 12/22/19 13:24 Dose: 3 mg Non-Formulary Medication (Ambrisentan [Ambrisentan]) 10 mg PO DAILY [facility] Non-Formulary Medication (Travoprost [Travatan Z 0.004% Ophth Soln]) 1 drop EYEBOTH BEDTIME [facility] Pantoprazole Sodium (Protonix) 40 mg PO DAILY [facility] Povidone Iodine (Betadine 10% Soln) Confirm Administered Dose 1 ml .ROUTE .STK- MED ONE Stop: 12/22/19 06:58 Last Admin: 12/22/19 11:49 Dose: 15 ml Propofol (Diprivan 20 Ml) Confirm Administered Dose 200 mg .ROUTE .STK-MED ONE Stop: 12/22/19 08:39
--- NOTE | 2019-12-31 19:35 | OR ---
DATE OF PROCEDURE: 12/22/2019 SURGEON: Lg Robles MD PREOPERATIVE DIAGNOSES: 1. Malunion, right lateral tibial plateau fracture. 2. Mild posttraumatic osteoarthritis. POSTOPERATIVE DIAGNOSES: 1. Malunion, right lateral tibial plateau fracture. 2. Mild posttraumatic osteoarthritis. PROCEDURE: Right total knee arthroplasty using Carmita Persona components. ANESTHESIA: Spinal with sedation. INDICATIONS: eNris is a very pleasant 69-year-old female who sustained a depressed lateral tibial plateau fracture. This went on to heal with progressive depression and valgus deformity. She has had increasing knee pain, sensation of instability, and genu valgum. She now presents for right total knee arthroplasty. Risks, benefits, potential complications of the procedure were discussed. DESCRIPTION OF PROCEDURE: After adequate anesthesia was obtained, the patient was placed supine with a tourniquet about the right upper thigh. Right leg was prepped and draped in a sterile fashion. Leg was exsanguinated and tourniquet inflated to 300 mmHg pressure. Anterior incision was made and carried down through the subcutaneous tissues and hemostasis obtained with electrocautery. Medial parapatellar arthrotomy was performed. Mild degenerative changes were noted of the patellofemoral joint. Patella was partially everted and the posterior aspect resected with an oscillating saw. The knee was flexed and the intramedullary canal of the femur was then drilled and intramedullary guide was placed. Distal cutting jig was secured and the distal femoral cuts were then made. Extramedullary tibial jig was then placed, aligned, and secured. Proximal tibia was resected taking it down to just below the main layer of articular cartilage of the lateral tibial plateau. This was removed and the medial and lateral menisci were excised. Attention was returned to the femur. The femur was sized and the appropriate cutting jig was placed. Remaining femoral cuts were made including peg drills being made. Intercondylar notch cut was made for a posterior cruciate sacrificing component. Femoral trial showed good fit. The proximal tibia was then sized and the tibial plate was secured. The remaining tibial preparation was completed with a large reamer and punch. The knee was trialed and showed good balance in flexion and extension with hindu of alignment. The trials were removed. The lateral tibial plateau showed depressed fragment with articular cartilage embedded into the plateau. This was removed with a combination of a rongeur and osteotome. The resulting defect was then packed with bone graft obtained from the bone resected. Surfaces were then thoroughly irrigated, protecting the bone graft. The surfaces were dried. Components were then cemented in place. Excess cement was removed and the knee was held in full extension with the trial insert. This was held until cement cured. The knee was again taken through range of motion, showed good tracking of the patella and good balance in flexion and extension. Trial was removed. Tray was irrigated and the final polyethylene was snapped into position. Irrigation was then done with a dilute Betadine solution, which was left in place for 2.5 minutes. This was then irrigated with pulse lavage and the knee was closed with #2 Ethibond in interrupted fashion in the deep layer, 2-0 Vicryl and a running 3-0 Monocryl on the skin. Steri-Strips were applied. Sterile dressing was then placed. The patient tolerated the procedure very well. There were no complications. Taken from the operating room in stable condition. Lg Robles MD /[id number]
== END 2019-12-25 13:10 | disposition home or self-care (01) ==
LOC: JP.SDS 13:02 → JP.SDSSCHI 13:02 → JP.MS 14:15 → JP.SDS 12-25 13:10 → UNDODISIN 12-25 13:10
PROVIDERS: ATTEND Specialist
DX: S82.141A Displaced bicondylar fracture of right tibia, initial encounter for closed fracture (principal); M17.31 Unilateral post-traumatic osteoarthritis, right knee; I10 Essential (primary) hypertension; I27.20 Pulmonary hypertension, unspecified; F32.89 Other specified depressive episodes; Z88.1 Allergy status to other antibiotic agents; Z79.82 Long term (current) use of aspirin; Z79.899 Other long term (current) drug therapy; Z99.81 Dependence on supplemental oxygen; W19.XXXA Unspecified fall, initial encounter
CPT/HCPCS: 27447; 36415; 73560; 85027; 86850; 86900; 86901; 97110; 97116; 97162; 97165; 97530; 97535; A9270; C1713; C1776; J0131; J0690; J1650; J1885; J2250; J2270; J2704; J3010; J3410; J7030; J7050; J7120

== ENCOUNTER 2020-01-11 11:59 | Emergency (ER) | payer MEDICARE, OTHER ==
[2020-01-11 12:20] VITALS: BP 141/77; PULSE 93
--- NOTE | 2020-01-11 12:46 | EDM.PDOC ---
ED HPI GENERAL MEDICAL PROBLEM - General Chief Complaint: Lower Extremity Injury/Pain Stated Complaint: FELL AND INCISION ON KNEE OPENED Time Seen by Provider: 01/11/20 12:38 Source of Information: Reports: Patient History Limitations: Reports: No Limitations - History of Present Illness INITIAL COMMENTS - FREE TEXT/NARRATIVE: Patient presents for evaluation of a recent fall onto a bathroom floor which resulted in her knee arthroplasty incision opening up. This happened Sunday, 09 January. There was minimal drainage from the area after that time. They kept the area covered and then presented today out of concern for what to do. They' re surgeon is Dr. Cruz who is here Sunday through . They have not attempted to contact him. She is able to bear weight on the leg and bend it appropriately. The bones themself are not uncomfortable. Onset: Sudden Duration: Day(s): (1) Severity: Mild Improves with: Reports: None Worsens with: Reports: Movement Context: Reports: Trauma Associated Symptoms: Reports: No Other Symptoms - Related Data Allergies Allergy/AdvReac Type Severity Reaction Status Date / Time erythromycin base Allergy Hives Verified 01/11/20 12:23 Home Meds: Home Meds Aspirin [Ecotrin EC] 81 mg PO DAILY 07/16/17 [History] Fish Oil/[place]-3 Fatty Acids [Fish Oil 1,000 MG] 1 tab PO DAILY 07/16/17 [ History] Flaxseed Oil [Flaxseed] 1,000 mg PO BID 07/16/17 [History] Furosemide [Lasix] 40 mg PO DAILY 07/16/17 [History] Gabapentin [Neurontin] 300 mg PO TID 07/16/17 [History] Gemfibrozil [Lopid] 600 mg PO BID 07/16/17 [History] Glucosamine/D3/Boswellia Yael [Glucosamine Complex Tablet] 1 tab PO BID [History] Losartan [Cozaar] 50 mg PO DAILY 07/16/17 [History] Multivitamin [Multivitamins] 1 tab PO DAILY 07/16/17 [History] Pantoprazole Sodium [Protonix] 40 mg PO DAILY 07/16/17 [History] Travoprost [Travatan Z 0.004% Ophth Soln] 1 drop EYEBOTH BEDTIME 07/16/17 [ History] amLODIPine [Norvasc] 10 mg PO DAILY 07/16/17 [History] Acetaminophen [Tylenol Arthritis Pain] 650 mg PO Q12HR 11/21/18 [History] Citalopram [Citalopram HBr] 20 mg PO DAILY 11/21/18 [History] Naproxen 500 mg PO BID PRN 11/21/18 [History] [place]-3/DHA/Epa/Fish Oil [Fish Oil 1,000 mg Softgel] 1 each PO DAILY 11/21/18 [ History] Albuterol Sulfate [Proair Hfa] 1 - 2 puff INH Q4H PRN 11/20/19 [History] Isosorbide Mononitrate [Imdur] 30 mg PO BEDTIME 11/20/19 [History] Cyanocobalamin (Vitamin B12) [Vitamin B12] 1,000 mcg IJ .Q3M 12/18/19 [History] Enoxaparin Sodium [Lovenox] 30 mg SQ DAILY 21 Days #21 syringe 12/25/19 [Rx] Past Medical History HEENT History: Reports: Impaired Vision Cardiovascular History: Reports: High Cholesterol, Hypertension Respiratory History: Reports: None Gastrointestinal History: Reports: Gastritis, GERD Genitourinary History: Reports: None Musculoskeletal History: Reports: Other (See Below) Other Musculoskeletal History: L hip and knee pain. R tibia plateau Fx, fell Neurological History: Reports: None Psychiatric History: Reports: Depression Endocrine/Metabolic History: Reports: None Hematologic History: Reports: Anemia, B12 Deficiency, Iron Deficiency Immunologic History: Reports: Other (See Below) Other Immunologic History: CREST syndrome, cyclic edema Oncologic (Cancer) History: Reports: Malignant Melanoma, Squamous Cell Carcinoma Dermatologic History: Reports: Melanoma - Past Surgical History GI Surgical History: Reports: Appendectomy, Colonoscopy, EGD Female Surgical History: Reports: Hysterectomy Musculoskeletal Surgical History: Reports: Hip Replacement, Knee Replacement Other Musculoskeletal Surgeries/Procedures:: right total knee 12/22/19 Dermatological Surgical History: Reports: Skin Biopsy Social & Family History - Family History Family Medical History: Noncontributory - Tobacco Use Smoking Status *Q: Never Smoker - Caffeine Use Caffeine Use: Reports: Coffee, Tea Review of Systems - Review of Systems Review Of Systems: Comprehensive ROS is negative, except as noted in HPI. ED EXAM, GENERAL - Physical Exam Exam: See Below Exam Limited By: No Limitations General Appearance: Alert, Mild Distress Extremities: Other (The incision over the affected knee has a gap of almost 0.5 cm at its widest point and is open along the entire extent of the incision. Sub- cutaneous tissue is visualized and the subcutaneous sutures can be seen but that layer is intact. There is no bleeding. There is some minimal serous discharge from the open Alondra's of the incision) Course - Vital Signs Text/Narrative:: I was able to contact Dr. Cruz by telephone and review the situation with her. He recommends using a dry sterile dressing over the area and securing with an elastic bandage. She should keep that dressing and bandage in place and call his office tomorrow, Sunday, to arrange a recheck appointment in the office for Sunday. No medication changes. Patient will follow up as directed. Last Recorded V/S: Last Vital Signs Temp 36.6 C 01/11/20 12:29 Pulse 93 01/11/20 12:29 Resp 16 01/11/20 12:29 BP 141/77 H 01/11/20 12:29 Pulse Ox 95 01/11/20 12:29 - Re-Assessments/Exams Free Text/Narrative Re-Assessment/Exam: 01/11/20 20:57 I was able to contact Dr. Cruz by telephone and he recommends keeping the incision covered with a dry sterile dressing and bandage. She should contact his office staff tomorrow and arrange a clinic recheck visit on Sunday, 12 January. No new medications prescribed. If there are any concerns before then, she can contact his office or return here. She was discharged in stable condition Departure - Departure Time of Disposition: 20:58 Disposition: Home, Self-Care 01 Condition: Good Clinical Impression: Dehiscence of closure of skin Qualifiers: Encounter type: initial encounter Qualified Code(s): T81.31XA - Disruption of external operation (surgical) wound, not elsewhere classified, initial encounter - Discharge Information *PRESCRIPTION DRUG MONITORING PROGRAM REVIEWED*: Not Applicable *COPY OF PRESCRIPTION DRUG MONITORING REPORT IN PATIENT SANDRA: Not Applicable Instructions: Wound Dehiscence Referrals: Diane Goins MD [Primary Care Provider] - Forms: ED Department Discharge Additional Instructions: Keep current bandage on the knee and avoid bending the knee. Dr. Robles's office will call you tomorrow to arrange a recheck time with him on December. Return to ER if feeling worse in anyway. Sepsis Event Note - Evaluation Sepsis Screening Result: No Definite Risk - Focused Exam Vital Signs: Vital Signs Temp Pulse Resp BP Pulse Ox 01/11/20 12:29 36.6 C 93 16 141/77 H 95 01/11/20 12:18 36.6 C 93 16 141/77 H 95 Date Exam was Performed: 01/11/20 Time Exam was Performed: 20:52
== END 2020-01-11 13:06 | disposition home or self-care (01) ==
LOC: JP.ED 11:59
DX: T81.31XA Disruption of external operation (surgical) wound, not elsewhere classified, initial encounter (principal); I10 Essential (primary) hypertension; K21.9 Gastro-esophageal reflux disease without esophagitis; Z79.82 Long term (current) use of aspirin; Z79.899 Other long term (current) drug therapy; Z90.49 Acquired absence of other specified parts of digestive tract; Z90.710 Acquired absence of both cervix and uterus; Z88.1 Allergy status to other antibiotic agents
CPT/HCPCS: 99282; 99283

== ENCOUNTER 2020-01-14 07:59 | Day surgery (SDC) | payer MEDICARE, OTHER ==
[2020-01-14] MEDS ORDERED: Propofol 200 MG/20 ML SDV ONE ×2 (08:18→09:53)
[2020-01-14] MEDS ORDERED: fentaNYL 100 MCG/2 ML SDV ONE (08:19)
[2020-01-14] MEDS ORDERED: Midazolam 1 MG/ML 2 ML SDV ONE (08:19)
[2020-01-14] MEDS ORDERED: Nozin Nasal Sanitizer NASBOTH ONE (08:30)
[2020-01-14] MEDS ORDERED: Bupivacaine 0.5% 30 ML SDV ONE (08:46)
[2020-01-14] MEDS ORDERED: Lactated Ringers 1,000 ML IV SCH (09:00)
[2020-01-14] MEDS ORDERED: ceFAZolin 1 GM in Sodium Chloride 0.9% 50 ML IV ONE (09:30)
[2020-01-14] MEDS ORDERED: ceFAZolin 1 GM in Premix Bag 1 BAG IV ONE (09:30)
[2020-01-14] MEDS ORDERED: Povidone-Iodine 10% Soln 118.25 ML Bottle ONE (09:59)
[2020-01-14] MEDS ORDERED: Morphine 2 MG/ML Syringe IM ONE (10:37)
[2020-01-14] MEDS ORDERED: Morphine 2 MG/ML Syringe IVPUSH ONE (10:43)
[2020-01-14] MEDS ORDERED: fentaNYL 100 MCG/2 ML SDV IVPUSH ONE (10:46)
[2020-01-14] MEDS ORDERED: hydrOXYzine HCL 100 MG/2 ML SDV IM ONE (10:48)
[2020-01-14] MEDS ORDERED: Ketorolac 30 MG/ML SDV IVPUSH ONE (10:58)
[2020-01-14] MEDS ORDERED: traMADol 50 MG Tab PO PRN (11:44)
[2020-01-14 12:33] VITALS: BP 121/70; PULSE 72
--- NOTE | 2020-01-16 15:02 | OR ---
DATE OF PROCEDURE: 01/14/2020 SURGEON: Lg Robles MD PREOPERATIVE DIAGNOSIS: Traumatic dehiscence, right knee wound. POSTOPERATIVE DIAGNOSIS: Traumatic dehiscence, right knee wound including partial rupture of quadriceps tendon repair. PROCEDURE: Irrigation and debridement of right knee wound with repair of VMO attachment and primary closure of wound. ANESTHESIA: Sedation with local infiltration. INDICATIONS: Neris is a 69-year-old female who underwent a right total knee arthroplasty due to malunion of a tibial plateau fracture. She sustained a fall approximately 3 days ago in the bathroom of her home landing directly onto her bent knee resulting in splitting open of the wound. She now presents for irrigation and primary closure. Risks, benefits, potential complications of the procedure were discussed. DESCRIPTION OF PROCEDURE: After tourniquet was placed about the right upper thigh, the right leg was prepped and draped in a sterile fashion. The wound edges were infiltrated with 0.5% Marcaine. Tourniquet was not inflated during the course of the procedure. Evaluation of the wound revealed some mild serous drainage with minimal to no erythema. Cultures were taken of the wound, sent for aerobic, anaerobic and Gram stain evaluation. Further evaluation of the deep wound revealed that there was a partial rupture of the capsular incision at the top of the VMO repair. This was an area of only approximately a centimeter to a centimeter and a half. Wound was irrigated with pulse lavage. 1 stitch that had pulled loose in the VMO was removed and a pulse plasma processing centrifuge operator was used within the knee itself. This was followed by irrigation with a dilute Betadine solution. Quadriceps was then repaired using a #2 Ethibond in interrupted fashion. After closure, the knee was flexed and flexion of 120 degrees could be obtained easily without significant tension on the repair. The base of the wound was then irrigated again. Subcutaneous tissue was debrided using a curette and then irrigated again. The skin edges were then freshened using a 15 blade and the wound was then closed using 2-0 Vicryl in the deep layer, a running 3-0 Monocryl, and a 0 Prolene suture was used to place several tension sutures in a near-far far- near configuration to take the stress off the incision. Sterile dressing was then applied. The patient tolerated the procedure very well. There were no complications. She was taken from the operating room in stable condition. Lg Robles MD /[id number] MTDD
== END 2020-01-14 12:45 | disposition home or self-care (01) ==
LOC: JP.SDS 07:59
PROVIDERS: ATTEND Specialist
DX: T81.33XA Disruption of traumatic injury wound repair, initial encounter (principal); S76.111A Strain of right quadriceps muscle, fascia and tendon, initial encounter; Z88.1 Allergy status to other antibiotic agents; Z96.651 Presence of right artificial knee joint; X58.XXXA Exposure to other specified factors, initial encounter
CPT/HCPCS: 17999; 27385; 87070; 87075; 87077; 87186; 87205; A9270; J0690; J1885; J2250; J2270; J2704; J3010; J3410; J3490; J7120

== ENCOUNTER 2020-05-17 06:47 | Inpatient (IN) | payer MEDICARE, OTHER ==
[2020-05-17] MEDS ORDERED: Lactated Ringers 1,000 ML IV SCH (07:30)
[2020-05-17] MEDS: Nozin Nasal Sanitizer NASBOTH SCH ×3 (07:49→22:04)
[2020-05-17] MEDS ORDERED: Bupivacaine 0.5% 50 ML MDV ONE (08:09)
[2020-05-17] MEDS ORDERED: Propofol 200 MG/20 ML SDV ONE (09:47)
[2020-05-17] MEDS ORDERED: fentaNYL 100 MCG/2 ML SDV ONE (09:47)
[2020-05-17] MEDS ORDERED: Midazolam 1 MG/ML 2 ML SDV ONE (09:47)
[2020-05-17] MEDS ORDERED: Rocuronium 50 MG/5 ML Vial ONE (10:10)
[2020-05-17] MEDS ORDERED: Povidone-Iodine 10% Soln 118.25 ML Bottle ONE (10:18)
[2020-05-17] MEDS ORDERED: fentaNYL 250 MCG/5 ML SDV ONE (10:23)
[2020-05-17] MEDS ORDERED: Glycopyrrolate 0.2 MG/ML 5 ML MDV ONE (10:23)
[2020-05-17] MEDS ORDERED: Ondansetron 4 MG/2 ML SDV ONE (10:23)
[2020-05-17] MEDS ORDERED: Dexamethasone 4 MG/ML SDV ONE (10:23)
[2020-05-17] MEDS ORDERED: Neostigmine Methylsulfate 1 MG/ML 5 ML Syringe ONE (10:23)
[2020-05-17] MEDS ORDERED: Lactated Ringers 1,000 ML ONE (11:01)
[2020-05-17] MEDS ORDERED: Acetaminophen/HYDROcodone 325-5 MG Tab PO PRN (11:28)
[2020-05-17] MEDS ORDERED: Albuterol 8 GM Inhaler INH PRN (11:37)
[2020-05-17] MEDS ORDERED: Morphine 2 MG/ML SYRINGE IV ONE (11:45)
[2020-05-17] MEDS: Ketorolac 30 MG/ML SDV IVPUSH SCH ×2 (12:45→19:40)
[2020-05-17] MEDS: Morphine 2 MG/ML SYRINGE IVPUSH PRN ×3 (12:53→22:14)
[2020-05-17] MEDS: Acetaminophen/oxyCODONE 325-5 MG Tab PO PRN ×3 (13:35→21:53)
[2020-05-17] MEDS: Sodium Chloride 0.9% 1,000 ML IV SCH (15:43)
[2020-05-17] MEDS: Gabapentin 300 MG Cap PO SCH ×2 (15:45→21:55)
[2020-05-17] MEDS: Gemfibrozil 600 MG Tab PO SCH (17:34)
[2020-05-17] MEDS: Isosorbide Mononitrate 30 MG Tab.ER PO SCH (21:57)
[2020-05-17] MEDS: Docusate Sodium 100 MG Cap PO SCH (21:57)
[2020-05-17] MEDS: Latanoprost 0.005% Ophth Soln 2.5 ML Bottle EYEBOTH SCH (21:58)
[2020-05-17] MEDS: Acetaminophen 325 MG Tab PO SCH (21:59)
[2020-05-18] MEDS: Sodium Chloride 0.9% 1,000 ML IV SCH ×2 (00:06→08:34)
[2020-05-18] MEDS: Ketorolac 30 MG/ML SDV IVPUSH SCH ×3 (04:35→19:33)
[2020-05-18] MEDS: Acetaminophen/oxyCODONE 325-5 MG Tab PO PRN ×3 (07:14→21:08)
[2020-05-18] MEDS: Gemfibrozil 600 MG Tab PO SCH ×2 (07:16→17:03)
[2020-05-18] MEDS: Pantoprazole 40 MG Tab.CR PO SCH (07:16)
[2020-05-18] MEDS: Docusate Sodium 100 MG Cap PO SCH ×2 (08:26→20:52)
[2020-05-18] MEDS: Nozin Nasal Sanitizer NASBOTH SCH ×2 (08:26→20:50)
[2020-05-18] MEDS: Lactobacillus Rhamnosus GG (Probiotic) Cap PO SCH (08:27)
[2020-05-18] MEDS: Aspirin 81 MG Tab.EC PO SCH (08:28)
[2020-05-18] MEDS: Acetaminophen 325 MG Tab PO SCH ×2 (08:28→20:53)
[2020-05-18] MEDS: Gabapentin 300 MG Cap PO SCH ×3 (08:28→20:52)
[2020-05-18] MEDS: amLODIPine 10 MG Tab PO SCH (08:29)
[2020-05-18] MEDS: Losartan 50 MG Tab PO SCH (08:29)
[2020-05-18] MEDS: Furosemide 20 MG Tab PO SCH (08:30)
[2020-05-18] MEDS ORDERED: Citalopram 20 MG Tab PO SCH (09:00)
[2020-05-18] MEDS ORDERED: Ondansetron 4 MG/2 ML SDV IVPUSH PRN (13:58)
[2020-05-18] MEDS: Oxybutynin 5 MG Tab PO SCH ×2 (14:45→20:50)
[2020-05-18] MEDS ORDERED: Calcium Carbonate 500 MG Tab.Chew PO PRN (18:12)
[2020-05-18] MEDS: Citalopram 20 MG Tab PO SCH (20:51)
[2020-05-18] MEDS: Isosorbide Mononitrate 30 MG Tab.ER PO SCH (20:52)
[2020-05-18] MEDS: Latanoprost 0.005% Ophth Soln 2.5 ML Bottle EYEBOTH SCH (20:53)
[2020-05-19] MEDS: Acetaminophen/oxyCODONE 325-5 MG Tab PO PRN ×5 (03:27→22:39)
[2020-05-19] MEDS: Ketorolac 30 MG/ML SDV IVPUSH SCH (03:27)
[2020-05-19] MEDS: Gemfibrozil 600 MG Tab PO SCH ×2 (09:45→17:18)
[2020-05-19] MEDS: Pantoprazole 40 MG Tab.CR PO SCH (09:46)
[2020-05-19] MEDS: Nozin Nasal Sanitizer NASBOTH SCH ×2 (09:47→20:30)
[2020-05-19] MEDS: Lactobacillus Rhamnosus GG (Probiotic) Cap PO SCH (09:49)
[2020-05-19] MEDS: Furosemide 20 MG Tab PO SCH (09:49)
[2020-05-19] MEDS: amLODIPine 10 MG Tab PO SCH (09:49)
[2020-05-19] MEDS: Oxybutynin 5 MG Tab PO SCH ×2 (09:49→20:33)
[2020-05-19] MEDS: Aspirin 81 MG Tab.EC PO SCH (09:49)
[2020-05-19] MEDS: Gabapentin 300 MG Cap PO SCH ×3 (09:49→20:34)
[2020-05-19] MEDS: Docusate Sodium 100 MG Cap PO SCH ×2 (09:49→20:32)
[2020-05-19] MEDS: Losartan 50 MG Tab PO SCH (09:49)
[2020-05-19] MEDS: Acetaminophen 325 MG Tab PO SCH ×2 (09:50→20:32)
[2020-05-19] MEDS ORDERED: Polyethylene Glycol 3350 Powder 17 GM Packet PO ONE (18:11)
[2020-05-19] MEDS: Citalopram 20 MG Tab PO SCH (20:32)
[2020-05-19] MEDS: Latanoprost 0.005% Ophth Soln 2.5 ML Bottle EYEBOTH SCH (20:33)
[2020-05-19] MEDS: Isosorbide Mononitrate 30 MG Tab.ER PO SCH (20:34)
[2020-05-20] MEDS: Magnesium Hydroxide 400 MG/5 ML Susp 30 ML Cup PO PRN ×2 (05:23→10:36)
[2020-05-20] MEDS ORDERED: cefTRIAXone 2 GM in Sodium Chloride 0.9% 50 ML IV SCH (09:00)
[2020-05-20 09:07] VITALS: PULSE 82
[2020-05-20] MEDS: Nozin Nasal Sanitizer NASBOTH SCH (09:07)
[2020-05-20] MEDS: Pantoprazole 40 MG Tab.CR PO SCH (09:09)
[2020-05-20] MEDS: Docusate Sodium 100 MG Cap PO SCH (09:09)
[2020-05-20] MEDS: Gemfibrozil 600 MG Tab PO SCH (09:09)
[2020-05-20] MEDS: Losartan 50 MG Tab PO SCH (09:10)
[2020-05-20] MEDS: Furosemide 20 MG Tab PO SCH (09:11)
[2020-05-20] MEDS: Lactobacillus Rhamnosus GG (Probiotic) Cap PO SCH (09:11)
[2020-05-20] MEDS: Aspirin 81 MG Tab.EC PO SCH (09:11)
[2020-05-20] MEDS: amLODIPine 10 MG Tab PO SCH (09:12)
[2020-05-20] MEDS: Acetaminophen 325 MG Tab PO SCH (09:12)
[2020-05-20] MEDS: Gabapentin 300 MG Cap PO SCH ×2 (09:12→12:59)
[2020-05-20] MEDS: Oxybutynin 5 MG Tab PO SCH (09:12)
[2020-05-20 09:13] VITALS: BP 125/81
[2020-05-20] MEDS ORDERED: Bisacodyl 10 MG Supp RECTAL ONE (11:30)
--- NOTE | 2020-06-17 11:44 | OR ---
DATE OF PROCEDURE: 05/17/2020 SURGEON: Lg Robles MD PREOPERATIVE DIAGNOSIS: Abscess, right knee. POSTOPERATIVE DIAGNOSIS: Sinus tract to infected total knee arthroplasty, right knee. PROCEDURES: Complete synovectomy, right knee; irrigation; and polyethylene exchange. ANESTHESIA: General. INDICATIONS: Neris is a 69-year-old female with a complicated history of her right knee. This initially began with a tibial plateau fracture which went on to osteonecrosis and was falling into valgus position. She underwent a total knee arthroplasty. Early in the recovery period for the total knee, she slipped and fell in her kitchen, landing directly onto the bent knee resulting in a traumatic dehiscence of the incision. She was taken to the operating room at that time for irrigation and closure. Following that, she developed several small superficial abscesses, which each grew different bacteria and infections. These were sequentially cleared up and then another would present. For the last couple of weeks, she has had a persistent and more clear drainage from an area over the tibial metaphysis overlying the pes anserine tendons and bursa. This has been culturing Staph viridans. She is taken to the operating room today for irrigation and debridement of the abscess and probable sinus tract to the bursa. Risks, benefits, and potential complications of the procedure were discussed. DESCRIPTION OF PROCEDURE: After adequate local infiltration of Marcaine and sedation, the small pinpoint opening over the bursa was incised and fluid was present. Sinus tract was identified tracking up into the knee. Needle was placed into the joint, which came back with cloudy joint fluid. After this was detected, her was contacted regarding open irrigation, debridement and polyethylene exchange since she had sedation and could not consent to further treatment. We then converted to general anesthesia. Her previous incision was opened including the capsule. Very minimal amount of fluid was present with only a mild synovitis present. No evidence of loosening or gross purulence. The fluid that was aspirated was sent for Gram stain, culture and sensitivities. Complete synovectomy was performed using a combination of scalpel, Bovie electrocautery and rongeur. This included medial and lateral gutters. The polyethylene was removed and synovectomy completed posteriorly. The knee was thoroughly irrigated with pulse lavage. This was followed by Betadine solution, which was left in place. The metal surfaces were scrubbed with Betadine solution using a lap sponge. The wound was irrigated once again, followed by a second irrigation with Betadine solution. A new polyethylene was then placed, and the knee was closed over a drain. Deep incision was closed with a running locking monofilament and skin was closed with 2-0 Vicryl and 3-0 nylon sutures. Some of these sutures were in a tension- relieving near-far, far-near configuration due to the tenuous nature of her skin due to the previous trauma dehiscence. Sterile dressing was then applied. The patient tolerated the procedure very well. There were no complications. She was taken from the operating room in stable condition. Lg Robles MD /[id number]
== END 2020-05-20 14:00 | disposition home or self-care (01) | DRG 487 ==
LOC: JP.SDS 06:47 → JP.MS 11:28 → JP.SDS 05-18 11:27
PROVIDERS: ADMIT Specialist; ATTEND Specialist
PROC: 0SBC0ZZ Excision of Right Knee Joint, Open Approach (ICD-10-PCS; principal; 2020-05-17)
PROC: 0SPC09Z Removal of Liner from Right Knee Joint, Open Approach (ICD-10-PCS; 2020-05-17)
PROC: 0SUV09Z Supplement Right Knee Joint, Tibial Surface with Liner, Open Approach (ICD-10-PCS; 2020-05-17)
DX: T84.53XA Infection and inflammatory reaction due to internal right knee prosthesis, initial encounter (principal); Z20.828 Contact with and (suspected) exposure to other viral communicable diseases
CPT/HCPCS: 36415; 36569; 51701; 80053; 80202; 82565; 85025; 85027; 85651; 86140; 87070; 87075; 87077; 87205; 97110-GP; 97116-GP; 97140-GP; 97161-GP; 97530-GP; A9270-GY; C1751; C1776; J0696; J0713; J1100; J1885; J2250; J2270; J2405; J2704; J2710; J3010; J3370; J3490; J7030; J7050; J7120; U0002

== ENCOUNTER 2020-06-21 16:53 | Inpatient (IN) | payer MEDICARE, OTHER ==
[2020-06-21] MEDS ORDERED: traMADol 50 MG Tab PO ONE (17:17)
--- NOTE | 2020-06-21 17:23 | EDM.PDOC ---
ED HPI GENERAL MEDICAL PROBLEM - General Chief Complaint: Skin Complaint Stated Complaint: SPLIT KNEE INCISION OPEN Time Seen by Provider: 06/21/20 17:15 Source of Information: Reports: Patient History Limitations: Reports: No Limitations - History of Present Illness INITIAL COMMENTS - FREE TEXT/NARRATIVE: Neris is a 69 year old female who presents to the ED today with right knee pain s/p fall. Patient has had ongoing complications with her right knee since knee replacement earlier this year. Patient has been doing fairly well the last few weeks until today when she fell. Patient denies any other injuries from the fall. Weight bearing and movement make her symptoms worse, rest and elevation help. Onset: Today, Sudden - Related Data Allergies Allergy/AdvReac Type Severity Reaction Status Date / Time ceftriaxone [From Rocephin] Allergy Swollen Verified 06/21/20 17:10 Tongue erythromycin base Allergy Hives Verified 06/21/20 17:10 Home Meds: Home Meds Aspirin [Ecotrin EC] 81 mg PO DAILY 07/16/17 [History] Flaxseed Oil [Flaxseed] 1,000 mg PO BID 07/16/17 [History] Furosemide [Lasix] 20 mg PO DAILY 07/16/17 [History] Gabapentin [Neurontin] 300 mg PO TID 07/16/17 [History] Glucosamine/D3/Boswellia Yael [Glucosamine Complex Tablet] 1 tab PO BID 06/29 06/14 [History] Losartan [Cozaar] 50 mg PO DAILY 07/16/17 [History] Multivitamin [Multivitamins] 1 tab PO DAILY 07/16/17 [History] Pantoprazole Sodium [Protonix] 40 mg PO DAILY 07/16/17 [History] Travoprost [Travatan Z 0.004% Ophth Soln] 1 drop EYEBOTH BEDTIME 07/16/17 [History] amLODIPine [Norvasc] 10 mg PO DAILY 07/16/17 [History] gemfibroziL [Lopid] 600 mg PO BID 07/16/17 [History] Acetaminophen [Tylenol Arthritis Pain] 650 mg PO Q12HR 11/21/18 [History] Citalopram [Citalopram HBr] 20 mg PO DAILY 11/21/18 [History] Naproxen 500 mg PO BID PRN 11/21/18 [History] [place]-3/DHA/Epa/Fish Oil [Fish Oil 1,000 mg Softgel] 1,000 mg PO DAILY 11/21/18 [History] Albuterol Sulfate [Proair Hfa] 1 - 2 puff INH Q4H PRN 11/20/19 [History] Isosorbide Mononitrate [Imdur] 30 mg PO BEDTIME 11/20/19 [History] Cyanocobalamin (Vitamin B12) [Vitamin B12] 1,000 mcg IJ .Q3M 12/18/19 [History] Zoledronic Acid in Water [Reclast] 1 infus.set IV .YEARLY 04/13/20 [History] rifAMPin [Rifampin] 300 mg PO BID 30 Days #60 cap 05/20/20 [Rx] cefTRIAXone [Rocephin] 1 gm IV Q24H 06/01/20 [History] Clindamycin HCl 300 mg PO QID 10 Days #40 capsule 06/17/20 [Rx] Naproxen 500 mg PO BID 06/21/20 [History] Past Medical History HEENT History: Reports: Cataract, Impaired Vision Cardiovascular History: Reports: High Cholesterol, Hypertension Respiratory History: Reports: Other (See Below) Other Respiratory History: pulmonary hypertension Gastrointestinal History: Reports: Gastritis, GERD Genitourinary History: Reports: None HEALTH EDUCATION DIRECTOR History: Reports: Endometriosis, Polycystic Ovaries Musculoskeletal History: Reports: Arthritis, Fracture, Other (See Below) Other Musculoskeletal History: L hip and knee pain. R tibia plateau Fx, fell 09/06/19. R knee abscess Neurological History: Reports: Neuropathy, Peripheral, Vertigo Other Neuro History: right vestibular nerve cut Psychiatric History: Reports: Depression Endocrine/Metabolic History: Reports: None Hematologic History: Reports: Anemia, B12 Deficiency, Iron Deficiency Immunologic History: Reports: Other (See Below) Other Immunologic History: CREST syndrome, cyclic edema Oncologic (Cancer) History: Reports: Malignant Melanoma, Squamous Cell Carcinoma Dermatologic History: Reports: Melanoma Other Dermatologic History: Raynaud's - Infectious Disease History Infectious Disease History: Reports: Measles, Mumps, Other (See Below) Other Infectious Disease History: lymes disease - Past Surgical History HEENT Surgical History: Reports: Cataract Surgery, Oral Surgery GI Surgical History: Reports: Appendectomy, Colonoscopy, EGD Female Surgical History: Reports: Hysterectomy Endocrine Surgical History: Reports: None Neurological Surgical History: Reports: None Musculoskeletal Surgical History: Reports: Hip Replacement, Knee Replacement Other Musculoskeletal Surgeries/Procedures:: right total knee 12/22/19. right k nee infection from trauma after recent surgery Dermatological Surgical History: Reports: Skin Biopsy Social & Family History - Family History Family Medical History: Noncontributory - Tobacco Use Smoking Status *Q: Never Smoker - Caffeine Use Caffeine Use: Reports: None ED ROS GENERAL - Review of Systems Review Of Systems: Comprehensive ROS is negative, except as noted in HPI. ED EXAM, SKIN/RASH Exam: See Below Exam Limited By: No Limitations General Appearance: Alert, WD/WN, No Apparent Distress Throat/Mouth: Normal Inspection Head: Atraumatic Neck: Normal Inspection, Supple, Non-Tender, Full Range of Motion Respiratory/Chest: No Respiratory Distress Cardiovascular: Normal Peripheral Pulses Back Exam: Normal Inspection Extremities: Normal Inspection, Other (split open incision to right knee, pain with ROM, distal pulses intact) Neurological: Alert, Oriented Psychiatric: Normal Affect Course - Vital Signs Last Recorded V/S: Last Vital Signs Temp 36.4 C 06/21/20 17:10 Pulse 99 06/21/20 17:10 Resp 18 06/21/20 17:10 BP 135/90 06/21/20 17:10 Pulse Ox 97 06/21/20 17:10 Split right knee incision with already prior complicated surgical hx to affected knee. Dr. Margaret mitchell here to see patient. Patient started on LR, Vancomycin per his request. Labs pending, appropriately NPO for procedure. Patient denies any hx of anesthesia related complications. Patient medically cleared for surgery for washout with Dr. Robles. Family and patient agreeable to plan of care and patient transferred to OR in stable condition. - Orders/Labs/Meds Orders: Active Orders 24 hr Category Date Time Status Peripheral IV Care [RC] . DIRECTED Care 06/21/20 17:34 Active BASIC METABOLIC PANEL,BMP [CHEM] Stat Lab 06/21/20 17:34 Ordered CBC WITH AUTO DIFF [HEME] Stat Lab 06/21/20 17:34 Ordered CRP [C-REACTIVE PROTEIN] [CHEM] Stat Lab 06/21/20 17:35 Ordered Lactated Ringers [Ringers, Lactated] 1,000 ml Med 06/21/20 17:45 Active IV ASDIRECTED Sodium Chloride 0.9% [Saline Flush] Med 06/21/20 17:34 Active 10 ml FLUSH ASDIRECTED PRN Vancomycin 1 gm Med 06/21/20 17:35 Active Sodium Chloride 0.9% [Normal Saline] 250 ml IV ONETIME Peripheral IV Insertion Adult [OM.PC] Routine Oth 06/21/20 17:34 Ordered Medication Orders Lactated Ringer's (Ringers, Lactated) 1,000 mls @ 125 mls/hr IV ASDIRECTED ALTAF Vancomycin HCl 1 gm/ Sodium (Chloride) 250 mls @ 150 mls/hr IV ONETIME ONE Stop: 06/21/20 19:14 Sodium Chloride (Saline Flush) 10 ml FLUSH ASDIRECTED PRN PRN Reason: Keep Vein Open Meds: Medications Generic Name Dose Route Start Last Admin Trade Name Freq PRN Reason Stop Dose Admin Lactated Ringer's 1,000 mls @ 125 mls/hr 06/21/20 17:45 Ringers, Lactated IV ASDIRECTED ALTAF Vancomycin HCl 1 gm/ Sodium 250 mls @ 150 mls/hr 06/21/20 17:35 Chloride IV 06/21/20 19:14 ONETIME ONE Sodium Chloride 10 ml 06/21/20 17:34 Saline Flush FLUSH ASDIRECTED PRN Keep Vein Open Discontinued Medications Generic Name Dose Route Start Last Admin Trade Name Freq PRN Reason Stop Dose Admin Tramadol HCl 100 mg 06/21/20 17:17 06/21/20 17:22 Ultram PO 06/21/20 17:18 100 mg ONETIME ONE Administration Departure - Departure Time of Disposition: 18:00 Disposition: Admitted As Inpatient 66 Condition: Good Clinical Impression: Laceration of knee, right, complicated Qualifiers: Encounter type: initial encounter Qualified Code(s): S81.011A - Laceration without foreign body, right knee, initial encounter - Discharge Information Referrals: Diane Goins MD [Primary Care Provider] - Forms: ED Department Discharge Sepsis Event Note (ED) - Evaluation Sepsis Screening Result: No Definite Risk - Focused Exam Vital Signs: Vital Signs Temp Pulse Resp BP Pulse Ox 06/21/20 17:10 36.4 C 99 18 135/90 97 06/21/20 17:08 36.4 C 99 18 135/90 97 - My Orders Last 24 Hours: My Active Orders 06/21/20 17:34 Peripheral IV Care [RC] . DIRECTED BASIC METABOLIC PANEL,BMP [CHEM] Stat CBC WITH AUTO DIFF [HEME] Stat Sodium Chloride 0.9% [Saline Flush] 10 ml FLUSH ASDIRECTED PRN Peripheral IV Insertion Adult [OM.PC] Routine 06/21/20 17:35 CRP [C-REACTIVE PROTEIN] [CHEM] Stat Vancomycin 1 gm Sodium Chloride 0.9% [Normal Saline] 250 ml IV ONETIME 06/21/20 17:45 Lactated Ringers [Ringers, Lactated] 1,000 ml IV ASDIRECTED - Assessment/Plan Last 24 Hours: My Active Orders 06/21/20 17:34 Peripheral IV Care [RC] . DIRECTED BASIC METABOLIC PANEL,BMP [CHEM] Stat CBC WITH AUTO DIFF [HEME] Stat Sodium Chloride 0.9% [Saline Flush] 10 ml FLUSH ASDIRECTED PRN Peripheral IV Insertion Adult [OM.PC] Routine 06/21/20 17:35 CRP [C-REACTIVE PROTEIN] [CHEM] Stat Vancomycin 1 gm Sodium Chloride 0.9% [Normal Saline] 250 ml IV ONETIME 06/21/20 17:45 Lactated Ringers [Ringers, Lactated] 1,000 ml IV ASDIRECTED
[2020-06-21] MEDS ORDERED: Sodium Chloride 0.9% 10 ML Syringe FLUSH PRN (17:34)
[2020-06-21] MEDS ORDERED: Lactated Ringers 1,000 ML IV SCH (17:45)
[2020-06-21] MEDS ORDERED: Propofol 200 MG/20 ML SDV ONE (18:15)
[2020-06-21] MEDS ORDERED: Dexamethasone 4 MG/ML SDV ONE (18:15)
[2020-06-21] MEDS ORDERED: fentaNYL 250 MCG/5 ML SDV ONE (18:15)
[2020-06-21] MEDS ORDERED: Succinylcholine 200 MG/10 ML MDV ONE (18:15)
[2020-06-21] MEDS ORDERED: Ondansetron 4 MG/2 ML SDV ONE (18:15)
[2020-06-21] MEDS ORDERED: Rocuronium 50 MG/5 ML Vial ONE (18:15)
[2020-06-21] MEDS ORDERED: Povidone-Iodine 10% Soln 118.25 ML Bottle ONE (18:16)
[2020-06-21] MEDS ORDERED: Bupivacaine 0.5% 50 ML MDV ONE (18:16)
[2020-06-21] MEDS ORDERED: Docusate Sodium 100 MG Cap PO PRN (20:18)
[2020-06-21] MEDS ORDERED: Magnesium Hydroxide 400 MG/5 ML Susp 30 ML Cup PO PRN (20:18)
[2020-06-21] MEDS ORDERED: Albuterol 8 GM Inhaler INH PRN (20:25)
[2020-06-21] MEDS: Acetaminophen/oxyCODONE 325-5 MG Tab PO PRN (21:21)
[2020-06-21] MEDS: Gemfibrozil 600 MG Tab PO SCH (21:54)
[2020-06-21] MEDS: Acetaminophen 325 MG Tab PO SCH (21:54)
[2020-06-21] MEDS: Gabapentin 300 MG Cap PO SCH (21:54)
[2020-06-21] MEDS: Latanoprost 0.005% Ophth Soln 2.5 ML Bottle EYEBOTH SCH (21:55)
[2020-06-21] MEDS: Isosorbide Mononitrate 30 MG Tab.ER PO SCH (21:55)
[2020-06-21] MEDS: diphenhydrAMINE 25 MG Cap PO PRN (23:56)
[2020-06-22] MEDS: Acetaminophen/oxyCODONE 325-5 MG Tab PO PRN ×5 (01:49→19:44)
[2020-06-22] MEDS: diphenhydrAMINE 25 MG Cap PO PRN ×3 (04:14→19:43)
[2020-06-22] MEDS: Sodium Chloride 0.9% 1,000 ML IV SCH ×3 (07:20→17:26)
[2020-06-22] MEDS: Morphine 2 MG/ML SYRINGE IVPUSH PRN ×4 (09:28→19:43)
[2020-06-22] MEDS: Pantoprazole 40 MG Tab.CR PO SCH (09:33)
[2020-06-22] MEDS: Ketorolac 30 MG/ML SDV IVPUSH PRN (13:40)
[2020-06-22] MEDS: Citalopram 20 MG Tab PO SCH (15:11)
[2020-06-22] MEDS: Furosemide 20 MG Tab PO SCH (15:12)
[2020-06-22] MEDS: Losartan 50 MG Tab PO SCH (15:12)
[2020-06-22] MEDS: Gemfibrozil 600 MG Tab PO SCH ×2 (15:12→21:16)
[2020-06-22] MEDS: Aspirin 81 MG Tab.EC PO SCH (15:12)
[2020-06-22] MEDS: amLODIPine 5 MG Tab PO SCH (15:13)
[2020-06-22] MEDS: Gabapentin 300 MG Cap PO SCH ×3 (15:13→21:16)
[2020-06-22] MEDS: Acetaminophen 325 MG Tab PO SCH ×2 (15:13→21:16)
[2020-06-22] MEDS ORDERED: hydrOXYzine HCl 25 MG Tab PO PRN (16:40)
[2020-06-22] MEDS: Latanoprost 0.005% Ophth Soln 2.5 ML Bottle EYEBOTH SCH (21:16)
[2020-06-22] MEDS: Isosorbide Mononitrate 30 MG Tab.ER PO SCH (21:20)
[2020-06-23] MEDS: Acetaminophen/oxyCODONE 325-5 MG Tab PO PRN ×3 (02:53→11:01)
[2020-06-23] MEDS: Sodium Chloride 0.9% 1,000 ML IV SCH (02:53)
[2020-06-23] MEDS: Ketorolac 30 MG/ML SDV IVPUSH PRN (03:51)
[2020-06-23] MEDS: Pantoprazole 40 MG Tab.CR PO SCH (06:55)
[2020-06-23] MEDS: Morphine 2 MG/ML SYRINGE IVPUSH PRN (08:12)
[2020-06-23] MEDS: Citalopram 20 MG Tab PO SCH (08:42)
[2020-06-23] MEDS: Losartan 50 MG Tab PO SCH (08:42)
[2020-06-23] MEDS: Furosemide 20 MG Tab PO SCH (08:43)
[2020-06-23] MEDS: Aspirin 81 MG Tab.EC PO SCH (08:43)
[2020-06-23] MEDS: Gemfibrozil 600 MG Tab PO SCH (08:44)
[2020-06-23] MEDS: Gabapentin 300 MG Cap PO SCH (08:44)
[2020-06-23] MEDS: amLODIPine 5 MG Tab PO SCH (08:44)
[2020-06-23] MEDS: Acetaminophen 325 MG Tab PO SCH (08:45)
[2020-06-23 10:58] VITALS: BP 123/75; PULSE 88
[2020-06-23] MEDS ORDERED: Levofloxacin 500 MG Tab PO ONE (12:00)
--- NOTE | 2020-06-23 14:04 | PCM.SURGPN ---
- General Info Date of Service: 06/22/20 Date of Surgery/Procedure: 06/21/20 POD#: 1 Post-Op Diagnosis: Traumatic wound dehiscence Functional Status: Reports: Tolerating Diet, Urinating, Other (Pain partially controlled) - Review of Systems General: Reports: No Symptoms HEENT: Reports: No Symptoms Pulmonary: Reports: No Symptoms Cardiovascular: Reports: No Symptoms Gastrointestinal: Reports: No Symptoms Genitourinary: Reports: No Symptoms Musculoskeletal: Reports: Joint Pain Skin: Reports: Pruritis Neurological: Reports: No Symptoms Psychiatric: Reports: No Symptoms - Patient Data Vitals - Most Recent: Last Vital Signs Temp 36.3 C 06/23/20 10:57 Pulse 88 06/23/20 10:57 Resp 16 06/23/20 10:57 BP 123/75 06/23/20 10:57 Pulse Ox 93 L 06/23/20 10:57 Weight - Most Recent: 64.41 kg I&O - Last 24 Hours: Intake & Output 06/22/20 06/23/20 06/23/20 22:59 06:59 14:59 Intake Total 3063 1078 250 Output Total 200 300 200 Balance 2863 778 50 Fady Results Last 24 Hrs: Microbiology 06/21/20 19:45 Anaerobic Culture - Preliminary Knee, Right NO GROWTH AFTER 1 DAY 06/21/20 19:45 Gram Stain - Final Knee, Right Wound Culture - Preliminary Med Orders - Current: Current Medications Acetaminophen (Tylenol) 650 mg PO BID [facility] Last Admin: 06/23/20 08:45 Dose: 650 mg Documented by: Albuterol (Ventolin Hfa) 0 gm INH Q4H PRN PRN Reason: Shortness of Breath Amlodipine Besylate (Norvasc) 10 mg PO DAILY [facility] Last Admin: 06/23/20 08:44 Dose: 10 mg Documented by: Aspirin (Halfprin) 81 mg PO DAILY [facility] Last Admin: 06/23/20 08:43 Dose: 81 mg Documented by: Citalopram Hydrobromide (Celexa) 20 mg PO DAILY [facility] Last Admin: 06/23/20 08:42 Dose: 20 mg Documented by: Diphenhydramine HCl (Benadryl) 25 - 50 mg PO Q4H PRN PRN Reason: Itching Last Admin: 06/22/20 19:43 Dose: 50 mg Documented by: Docusate Sodium (Colace) 100 mg PO BID PRN PRN Reason: Constipation Last Admin: 06/23/20 08:48 Dose: 100 mg Documented by: Furosemide (Lasix) 20 mg PO DAILY [facility] Last Admin: 06/23/20 08:43 Dose: 20 mg Documented by: Gabapentin (Neurontin) 300 mg PO TID [facility] Last Admin: 06/23/20 08:44 Dose: 300 mg Documented by: Gemfibrozil (Lopid) 600 mg PO BID [facility] Last Admin: 06/23/20 08:44 Dose: 600 mg Documented by: Hydroxyzine HCl (Atarax) 25 mg PO Q6H PRN PRN Reason: Itching Last Admin: 06/22/20 18:40 Dose: 25 mg Documented by: Sodium Chloride (Normal Saline) 1,000 mls @ 125 mls/hr IV ASDIRECTED [facility] Last Admin: 06/23/20 02:53 Dose: 125 mls/hr Documented by: Vancomycin HCl 1 gm/ Sodium (Chloride) 250 mls @ 150 mls/hr IV Q12H [facility] Last Admin: 06/23/20 10:20 Dose: 150 mls/hr Documented by: Isosorbide Mononitrate (Imdur) 30 mg PO BEDTIME [facility] Last Admin: 06/22/20 21:20 Dose: Not Given Documented by: Ketorolac Tromethamine (Toradol) 15 mg IVPUSH Q8H PRN PRN Reason: Pain (mild 1-3) Stop: 06/26/20 20:00 Last Admin: 06/23/20 03:51 Dose: 15 mg Documented by: Latanoprost (Xalatan 0.005% Ophth Soln) 0 ml EYEBOTH BEDTIME [facility] Last Admin: 06/22/20 21:16 Dose: Not Given Documented by: Losartan Potassium (Cozaar) 50 mg PO DAILY [facility] Last Admin: 06/23/20 08:42 Dose: 50 mg Documented by: Magnesium Hydroxide (Milk Of Magnesia) 30 ml PO BID PRN PRN Reason: Constipation Morphine Sulfate (Morphine) 2 mg IVPUSH Q1H PRN PRN Reason: Breakthrough Pain Last Admin: 06/23/20 08:12 Dose: 2 mg Documented by: Oxycodone/Acetaminophen (Percocet 325-5 Mg) 1 - 2 tab PO Q4H PRN PRN Reason: Pain Last Admin: 06/23/20 11:01 Dose: 2 tab Documented by: Pantoprazole Sodium (Protonix) 40 mg PO ACBREAKFAST [facility] Last Admin: 06/23/20 06:55 Dose: 40 mg Documented by: Sodium Chloride (Saline Flush) 10 ml FLUSH ASDIRECTED PRN PRN Reason: Keep Vein Open Discontinued Medications Bupivacaine HCl (Marcaine 0.5%) Confirm Administered Dose 50 ml .ROUTE .STK-MED ONE Stop: 06/21/20 18:17 Last Admin: 06/21/20 19:24 Dose: 50 ml Documented by: Dexamethasone (Dexamethasone) Confirm Administered Dose 4 mg .ROUTE .STK-MED ONE Stop: 06/21/20 18:16 Fentanyl (Sublimaze) Confirm Administered Dose 250 mcg .ROUTE .STK-MED ONE Stop: 06/21/20 18:16 Lactated Ringer's (Ringers, Lactated) 1,000 mls @ 125 mls/hr IV ASDIRECTED [facility] Last Infusion: 06/22/20 01:52 Dose: Infused Documented by: Vancomycin HCl 1 gm/ Sodium (Chloride) 250 mls @ 150 mls/hr IV ONETIME ONE Stop: 06/21/20 19:14 Last Admin: 06/21/20 18:05 Dose: 150 mls/hr Documented by: Levofloxacin (Levaquin) 500 mg PO ONETIME ONE Stop: 06/23/20 12:01 Last Admin: 06/23/20 11:03 Dose: 500 mg Documented by: Ondansetron HCl (Zofran) Confirm Administered Dose 4 mg .ROUTE .STK-MED ONE Stop: 06/21/20 18:16 Povidone Iodine (Betadine 10% Soln) Confirm Administered Dose 1 ml .ROUTE .STK- MED ONE Stop: 06/21/20 18:17 Last Admin: 06/21/20 19:24 Dose: 10 ml Documented by: Propofol (Diprivan 20 Ml) Confirm Administered Dose 200 mg .ROUTE .STK-MED ONE Stop: 06/21/20 18:16 Rocuronium [place] (Zemuron) Confirm Administered Dose 50 mg .ROUTE .STK-MED ONE Stop: 06/21/20 18:16 Succinylcholine Chloride (Quelicin) Confirm Administered Dose 200 mg .ROUTE .STK-MED ONE Stop: 06/21/20 18:16 Tramadol HCl (Ultram) 100 mg PO ONETIME ONE Stop: 06/21/20 17:18 Last Admin: 06/21/20 17:22 Dose: 100 mg Documented by: - Exam Wound/Incisions: Dressing Dry and Intact General: Alert, Oriented HEENT: Pupils Equal Lungs: Clear to Auscultation, Normal Respiratory Effort Cardiovascular: Regular Rate, Regular Rhythm GI/Abdominal Exam: Normal Bowel Sounds, Soft, Non-Tender, No Organomegaly, No Distention, No Abnormal Bruit, No Mass, Pelvis Stable Extremities: Limited Range of Motion Skin: Warm, Dry, Intact Neurological: No New Focal Deficit Psy/Mental Status: Alert, Normal Affect, Normal Mood Sepsis Event Note - Evaluation Sepsis Screening Result: No Definite Risk - Focused Exam Vital Signs: Vital Signs Temp Pulse Resp BP BP Pulse Ox 06/23/20 10:57 36.3 C 88 16 123/75 93 L 06/23/20 08:44 122/85 06/23/20 08:42 122/85 06/23/20 07:00 35.1 C L 74 16 122/85 100 06/23/20 03:00 35.7 C L 70 16 114/80 100 - Problem List & Annotations (1) Infection of total right knee replacement SNOMED Code(s): 046202908 Code(s): T84.53XA - INFECT/INFLM REACTION DUE TO INTERNAL R KNEE PROSTH, INIT Status: Acute Current Visit: Yes Qualifiers: Encounter type: subsequent encounter Qualified Code(s): T84.53XD - Infection and inflammatory reaction due to internal right knee prosthesis, subsequent encounter (2) Dehiscence of closure of skin SNOMED Code(s): 32611925 Code(s): T81.31XA - DISRUPTION OF EXTERNAL OPERATION (SURGICAL) WOUND, NEC, INIT Status: Acute Current Visit: No Qualifiers: Encounter type: subsequent encounter Qualified Code(s): T81.31XD - Disruption of external operation (surgical) wound, not elsewhere classified, subsequent encounter - Problem List Review Problem List Initiated/Reviewed/Updated: Yes - My Orders Last 24 Hours: Active Orders 24 hr Category Date Time Status Ready for Discharge [RC] PER UNIT ROUTINE Care 06/23/20 10:56 Active hydrOXYzine HCL [Atarax] Med 06/22/20 16:40 Active 25 mg PO Q6H PRN Medication Orders Acetaminophen (Tylenol) 650 mg PO BID [facility] Last Admin: 06/23/20 08:45 Dose: 650 mg Documented by: Admin: 06/22/20 21:16 Dose: Not Given Documented by: Admin: 06/22/20 15:13 Dose: Not Given Documented by: Admin: 06/21/20 21:54 Dose: 650 mg Documented by: ANDRADE Albuterol (Ventolin Hfa) 0 gm INH Q4H PRN PRN Reason: Shortness of Breath Amlodipine Besylate (Norvasc) 10 mg PO DAILY [facility] Last Admin: 06/23/20 08:44 Dose: 10 mg Documented by: Admin: 06/22/20 15:13 Dose: Not Given Documented by: ODESSA Aspirin (Halfprin) 81 mg PO DAILY [facility] Last Admin: 06/23/20 08:43 Dose: 81 mg Documented by: Admin: 06/22/20 15:12 Dose: Not Given Documented by: ODESSA Citalopram Hydrobromide (Celexa) 20 mg PO DAILY [facility] Last Admin: 06/23/20 08:42 Dose: 20 mg Documented by: Admin: 06/22/20 15:11 Dose: Not Given Documented by: ODESSA Diphenhydramine HCl (Benadryl) 25 - 50 mg PO Q4H PRN PRN Reason: Itching Last Admin: 06/22/20 19:43 Dose: 50 mg Documented by: Admin: 06/22/20 09:28 Dose: 50 mg Documented by: Admin: 06/22/20 04:14 Dose: 25 mg Documented by: Admin: 06/21/20 23:56 Dose: 25 mg Documented by: ANDRADE Docusate Sodium (Colace) 100 mg PO BID PRN PRN Reason: Constipation Last Admin: 06/23/20 08:48 Dose: 100 mg Documented by: ELIZABETH Furosemide (Lasix) 20 mg PO DAILY [facility] Last Admin: 06/23/20 08:43 Dose: 20 mg Documented by: Admin: 06/22/20 15:12 Dose: Not Given Documented by: ODESSA Gabapentin (Neurontin) 300 mg PO TID [facility] Last Admin: 06/23/20 08:44 Dose: 300 mg Documented by: Admin: 06/22/20 21:16 Dose: Not Given Documented by: Admin: 06/22/20 16:56 Dose: Not Given Documented by: Admin: 06/22/20 15:13 Dose: Not Given Documented by: Admin: 06/21/20 21:54 Dose: 300 mg Documented by: ANDRADE Gemfibrozil (Lopid) 600 mg PO BID [facility] Last Admin: 06/23/20 08:44 Dose: 600 mg Documented by: Admin: 06/22/20 21:16 Dose: Not Given Documented by: Admin: 06/22/20 15:12 Dose: Not Given Documented by: Admin: 06/21/20 21:54 Dose: 600 mg Documented by: ANDRADE Hydroxyzine HCl (Atarax) 25 mg PO Q6H PRN PRN Reason: Itching Last Admin: 06/22/20 18:40 Dose: 25 mg Documented by: ALIRIO Sodium Chloride (Normal Saline) 1,000 mls @ 125 mls/hr IV ASDIRECTED [facility] Last Admin: 06/23/20 02:53 Dose: 125 mls/hr Documented by: Infusion: 06/23/20 01:26 Dose: 125 mls/hr Documented by: Admin: 06/22/20 17:26 Dose: 125 mls/hr Documented by: Infusion: 06/22/20 15:20 Dose: 125 mls/hr Documented by: Admin: 06/22/20 07:20 Dose: 125 mls/hr Documented by: Infusion: 06/22/20 07:20 Dose: 125 mls/hr Documented by: Admin: 06/22/20 00:00 Dose: 125 mls/hr Documented by: ANDRADE Vancomycin HCl 1 gm/ Sodium (Chloride) 250 mls @ 150 mls/hr IV Q12H [facility] Last Admin: 06/23/20 10:20 Dose: 150 mls/hr Documented by: Admin: 06/22/20 21:18 Dose: 150 mls/hr Documented by: Admin: 06/22/20 09:59 Dose: 150 mls/hr Documented by: ODESSA Isosorbide Mononitrate (Imdur) 30 mg PO BEDTIME [facility] Last Admin: 06/22/20 21:20 Dose: Not Given Documented by: Admin: 06/21/20 21:55 Dose: 30 mg Documented by: ANDRADE Ketorolac Tromethamine (Toradol) 15 mg IVPUSH Q8H PRN PRN Reason: Pain (mild 1-3) Stop: 06/26/20 20:00 Last Admin: 06/23/20 03:51 Dose: 15 mg Documented by: Admin: 06/22/20 13:40 Dose: 15 mg Documented by: ARON Latanoprost (Xalatan 0.005% Ophth Soln) 0 ml EYEBOTH BEDTIME [facility] Last Admin: 06/22/20 21:16 Dose: Not Given Documented by: Admin: 06/21/20 21:55 Dose: Not Given Documented by: ANDRADE Losartan Potassium (Cozaar) 50 mg PO DAILY [facility] Last Admin: 06/23/20 08:42 Dose: 50 mg Documented by: Admin: 06/22/20 15:12 Dose: Not Given Documented by: ODESSA Magnesium Hydroxide (Milk Of Magnesia) 30 ml PO BID PRN PRN Reason: Constipation Morphine Sulfate (Morphine) 2 mg IVPUSH Q1H PRN PRN Reason: Breakthrough Pain Last Admin: 06/23/20 08:12 Dose: 2 mg Documented by: Admin: 06/22/20 19:43 Dose: 2 mg Documented by: Admin: 06/22/20 18:40 Dose: 2 mg Documented by: Admin: 06/22/20 17:16 Dose: 2 mg Documented by: Admin: 06/22/20 09:28 Dose: 2 mg Documented by: ODESSA Oxycodone/Acetaminophen (Percocet 325-5 Mg) 1 - 2 tab PO Q4H PRN PRN Reason: Pain Last Admin: 06/23/20 11:01 Dose: 2 tab Documented by: Admin: 06/23/20 06:53 Dose: 2 tab Documented by: Admin: 06/23/20 02:53 Dose: 2 tab Documented by: Admin: 06/22/20 19:44 Dose: 2 tab Documented by: Admin: 06/22/20 15:37 Dose: 2 tab Documented by: Admin: 06/22/20 11:25 Dose: 2 tab Documented by: Admin: 06/22/20 07:20 Dose: 1 tab Documented by: Admin: 06/22/20 01:49 Dose: 1 tab Documented by: Admin: 06/21/20 21:21 Dose: 1 tab Documented by: ANDRADE Pantoprazole Sodium (Protonix) 40 mg PO ACBREAKFAST [facility] Last Admin: 06/23/20 06:55 Dose: 40 mg Documented by: Admin: 06/22/20 09:33 Dose: 40 mg Documented by: ODESSA Sodium Chloride (Saline Flush) 10 ml FLUSH ASDIRECTED PRN PRN Reason: Keep Vein Open - Assessment Assessment (Free Text/Narrative):: Did OK with surgery, working on pain control, still has some itching, no fevers, Gram Stain negative - Plan Plan (Free Text/Narrative):: Dressing changed, small amount of serosang. drainage, continue Vancomycin thru tomorrow, plan wound vac to assist with wound closure, will apply tomorrow
--- NOTE | 2020-06-23 14:10 | PCM.DCSUM1 ---
Discharge Summary - Hospital Course HPI Initial Comments: 69 year old with complicated history with right knee. Had TKA after collapse of a tibial plateau fx, fell onto knee a couple of weeks after surgery a broke open the incision. Developed superficial infections after that and eventually infected joint. Had I&D almost a month ago and has been on IV Rocephin. Has been having problems with itching, nausea/vomiting thought to be secondary to the Rocephin. Fell again on Sunday while attempting to get to the bathroom. Landed on right knee and opened incision again. At surgery was found to have partially ruptured capsular incision at VMO level. Diagnosis: Stroke: No Modified [place] Scale: No Symptoms at All Modified [place] Scale Score: 0 - Discharge Data Discharge Date: 06/23/20 Discharge Disposition: Home, Self-Care 01 Condition: Stable - Referral to Home Health Date of Face to Face Encounter: 06/23/20 Primary Care Physician: Diane Goins MD - Discharge Diagnosis/Problem(s) (1) Infection of total right knee replacement SNOMED Code(s): 332691950 ICD Code: T84.53XA - INFECT/INFLM REACTION DUE TO INTERNAL R KNEE PROSTH, INIT Status: Acute Current Visit: Yes Qualifiers: Encounter type: subsequent encounter Qualified Code(s): T84.53XD - Infection and inflammatory reaction due to internal right knee prosthesis, subsequent encounter (2) Dehiscence of closure of skin SNOMED Code(s): 47831378 ICD Code: T81.31XA - DISRUPTION OF EXTERNAL OPERATION (SURGICAL) WOUND, NEC, INIT Status: Acute Current Visit: No Qualifiers: Encounter type: subsequent encounter Qualified Code(s): T81.31XD - Disruption of external operation (surgical) wound, not elsewhere classified, subsequent encounter - Patient Summary/Data Operative Procedure(s) Performed: Irrigation and Debridement right knee, repair of VMO, closure of knee wound Consults: Consultations 06/21/20 20:18 Consult to Case Management/Child Care Director [CONS] Routine Comment: Physician Instructions: Service(s) to be Consulted: Case Management Reason for Consult: Plan for Discharge PT Evaluation and Treatment [CONS] Routine Please Evaluate and Treat. PT Reason for Consult: Post op Ortho Surgery This query below is only for informational purposes and is not editable. PT Evaluation and Treatment [CONS] Routine Please Evaluate and Treat. PT Reason for Consult: Post op Ortho Surgery Knee Pending Discharge: Yes, 1- 2 days Special Instructions: Schedule first outpatient PT appointment in 3-5 day post discharge. This query below is only for informational purposes and is not editable. Hospital Course: Tolerated procedure well. Some difficulty with pain control initially. Has been on IV Vancomycin, stopped Clindamycin and Rifampin, itching and GI symptoms much improved. Dressing changed POD #1 and 2 with WoundVac applied prior to discharge. Plan follow up Sunday for vac dressing change. Levofloxacin po for antibiotic. - Patient Instructions Diet: Usual Diet as Tolerated Activity: As Tolerated, Full Weight Bearing, No Strenuous Activities Driving: Do Not Drive Showering/Bathing: May Shower Wound/Incision Care: Do NOT Change Dressing Notify Provider of: Fever, Increased Pain, Swelling and Redness, Nausea and/or Vomiting - Discharge Plan *PRESCRIPTION DRUG MONITORING PROGRAM REVIEWED*: No *COPY OF PRESCRIPTION DRUG MONITORING REPORT IN PATIENT SANDRA: No Prescriptions/Med Rec: Levofloxacin 750 mg PO DAILY 14 Days #14 tablet oxyCODONE HCl/Acetaminophen [Percocet 5-325 mg Tablet] 1 - 2 each PO Q6HR PRN #48 tablet PRN Reason: Pain Home Medications: Home Meds Aspirin [Ecotrin EC] 81 mg PO DAILY 07/16/17 [History] Flaxseed Oil [Flaxseed] 1,000 mg PO BID 07/16/17 [History] Furosemide [Lasix] 20 mg PO DAILY 07/16/17 [History] Gabapentin [Neurontin] 300 mg PO TID 07/16/17 [History] Glucosamine/D3/Boswellia Yael [Glucosamine Complex Tablet] 1 tab PO BID 07/16/17 [History] Losartan [Cozaar] 50 mg PO DAILY 07/16/17 [History] Multivitamin [Multivitamins] 1 tab PO DAILY 07/16/17 [History] Pantoprazole Sodium [Protonix] 40 mg PO DAILY 07/16/17 [History] Travoprost [Travatan Z 0.004% Ophth Soln] 1 drop EYEBOTH BEDTIME 07/16/17 [History] amLODIPine [Norvasc] 10 mg PO DAILY 07/16/17 [History] gemfibroziL [Lopid] 600 mg PO BID 07/16/17 [History] Acetaminophen [Tylenol Arthritis Pain] 650 mg PO Q12HR 11/21/18 [History] Citalopram [Citalopram HBr] 20 mg PO DAILY 11/21/18 [History] Naproxen 500 mg PO BID PRN 11/21/18 [History] [place]-3/DHA/Epa/Fish Oil [Fish Oil 1,000 mg Softgel] 1,000 mg PO DAILY 11/21/18 [History] Albuterol Sulfate [Proair Hfa] 1 - 2 puff INH Q4H PRN 11/20/19 [History] Isosorbide Mononitrate [Imdur] 30 mg PO BEDTIME 11/20/19 [History] Cyanocobalamin (Vitamin B12) [Vitamin B12] 1,000 mcg IJ .Q3M 12/18/19 [History] Zoledronic Acid in Water [Reclast] 1 infus.set IV .YEARLY 04/13/20 [History] rifAMPin [Rifampin] 300 mg PO BID 30 Days #60 cap 05/20/20 [Rx] cefTRIAXone [Rocephin] 1 gm IV Q24H 06/01/20 [History] Clindamycin HCl 300 mg PO QID 10 Days #40 capsule 06/17/20 [Rx] Naproxen 500 mg PO BID 06/21/20 [History] Levofloxacin 750 mg PO DAILY 14 Days #14 tablet 06/23/20 [Rx] oxyCODONE HCl/Acetaminophen [Percocet 5-325 mg Tablet] 1 - 2 each PO Q6HR PRN #48 tablet 06/23/20 [Rx] Oxygen Therapy Mode: Room Air Forms: ED Department Discharge Referrals: Lg Robles MD [Physician] - 07/01/20 10:30 am (Please register at the ER desk for your appointment and arrive 15 minutes early to register for your appointment.) - Discharge Summary/Plan Comment DC Time >30 min.: Yes (Wound Vac application and discharge) - Patient Data Vitals - Most Recent: Last Vital Signs Temp 36.3 C 06/23/20 10:57 Pulse 88 06/23/20 10:57 Resp 16 06/23/20 10:57 BP 123/75 06/23/20 10:57 Pulse Ox 93 L 06/23/20 10:57 Weight - Most Recent: 64.41 kg I&O - Last 24 hours: Intake & Output 06/22/20 06/23/20 06/23/20 22:59 06:59 14:59 Intake Total 3063 1078 250 Output Total 200 300 200 Balance 2863 778 50 PRASANNA Results - Last 24 hrs: Microbiology 06/21/20 19:45 Anaerobic Culture - Preliminary Knee, Right NO GROWTH AFTER 1 DAY 06/21/20 19:45 Gram Stain - Final Knee, Right Wound Culture - Preliminary Med Orders - Current: Current Medications Acetaminophen (Tylenol) 650 mg PO BID [facility] Last Admin: 06/23/20 08:45 Dose: 650 mg Documented by: Albuterol (Ventolin Hfa) 0 gm INH Q4H PRN PRN Reason: Shortness of Breath Amlodipine Besylate (Norvasc) 10 mg PO DAILY [facility] Last Admin: 06/23/20 08:44 Dose: 10 mg Documented by: Aspirin (Halfprin) 81 mg PO DAILY [facility] Last Admin: 06/23/20 08:43 Dose: 81 mg Documented by: Citalopram Hydrobromide (Celexa) 20 mg PO DAILY [facility] Last Admin: 06/23/20 08:42 Dose: 20 mg Documented by: Diphenhydramine HCl (Benadryl) 25 - 50 mg PO Q4H PRN PRN Reason: Itching Last Admin: 06/22/20 19:43 Dose: 50 mg Documented by: Docusate Sodium (Colace) 100 mg PO BID PRN PRN Reason: Constipation Last Admin: 06/23/20 08:48 Dose: 100 mg Documented by: Furosemide (Lasix) 20 mg PO DAILY [facility] Last Admin: 06/23/20 08:43 Dose: 20 mg Documented by: Gabapentin (Neurontin) 300 mg PO TID [facility] Last Admin: 06/23/20 08:44 Dose: 300 mg Documented by: Gemfibrozil (Lopid) 600 mg PO BID [facility] Last Admin: 06/23/20 08:44 Dose: 600 mg Documented by: Hydroxyzine HCl (Atarax) 25 mg PO Q6H PRN PRN Reason: Itching Last Admin: 06/22/20 18:40 Dose: 25 mg Documented by: Sodium Chloride (Normal Saline) 1,000 mls @ 125 mls/hr IV ASDIRECTED [facility] Last Admin: 06/23/20 02:53 Dose: 125 mls/hr Documented by: Vancomycin HCl 1 gm/ Sodium (Chloride) 250 mls @ 150 mls/hr IV Q12H [facility] Last Admin: 06/23/20 10:20 Dose: 150 mls/hr Documented by: Isosorbide Mononitrate (Imdur) 30 mg PO BEDTIME [facility] Last Admin: 06/22/20 21:20 Dose: Not Given Documented by: Ketorolac Tromethamine (Toradol) 15 mg IVPUSH Q8H PRN PRN Reason: Pain (mild 1-3) Stop: 06/26/20 20:00 Last Admin: 06/23/20 03:51 Dose: 15 mg Documented by: Latanoprost (Xalatan 0.005% Ophth Soln) 0 ml EYEBOTH BEDTIME [facility] Last Admin: 06/22/20 21:16 Dose: Not Given Documented by: Losartan Potassium (Cozaar) 50 mg PO DAILY [facility] Last Admin: 06/23/20 08:42 Dose: 50 mg Documented by: Magnesium Hydroxide (Milk Of Magnesia) 30 ml PO BID PRN PRN Reason: Constipation Morphine Sulfate (Morphine) 2 mg IVPUSH Q1H PRN PRN Reason: Breakthrough Pain Last Admin: 06/23/20 08:12 Dose: 2 mg Documented by: Oxycodone/Acetaminophen (Percocet 325-5 Mg) 1 - 2 tab PO Q4H PRN PRN Reason: Pain Last Admin: 06/23/20 11:01 Dose: 2 tab Documented by: Pantoprazole Sodium (Protonix) 40 mg PO ACBREAKFAST [facility] Last Admin: 06/23/20 06:55 Dose: 40 mg Documented by: Sodium Chloride (Saline Flush) 10 ml FLUSH ASDIRECTED PRN PRN Reason: Keep Vein Open Discontinued Medications Bupivacaine HCl (Marcaine 0.5%) Confirm Administered Dose 50 ml .ROUTE .STK-MED ONE Stop: 06/21/20 18:17 Last Admin: 06/21/20 19:24 Dose: 50 ml Documented by: Dexamethasone (Dexamethasone) Confirm Administered Dose 4 mg .ROUTE .STK-MED ONE Stop: 06/21/20 18:16 Fentanyl (Sublimaze) Confirm Administered Dose 250 mcg .ROUTE .STK-MED ONE Stop: 06/21/20 18:16 Lactated Ringer's (Ringers, Lactated) 1,000 mls @ 125 mls/hr IV ASDIRECTED [facility] Last Infusion: 06/22/20 01:52 Dose: Infused Documented by: Vancomycin HCl 1 gm/ Sodium (Chloride) 250 mls @ 150 mls/hr IV ONETIME ONE Stop: 06/21/20 19:14 Last Admin: 06/21/20 18:05 Dose: 150 mls/hr Documented by: Levofloxacin (Levaquin) 500 mg PO ONETIME ONE Stop: 06/23/20 12:01 Last Admin: 06/23/20 11:03 Dose: 500 mg Documented by: Ondansetron HCl (Zofran) Confirm Administered Dose 4 mg .ROUTE .STK-MED ONE Stop: 06/21/20 18:16 Povidone Iodine (Betadine 10% Soln) Confirm Administered Dose 1 ml .ROUTE .STK- MED ONE Stop: 06/21/20 18:17 Last Admin: 06/21/20 19:24 Dose: 10 ml Documented by: Propofol (Diprivan 20 Ml) Confirm Administered Dose 200 mg .ROUTE .STK-MED ONE Stop: 06/21/20 18:16 Rocuronium [place] (Zemuron) Confirm Administered Dose 50 mg .ROUTE .STK-MED ONE Stop: 06/21/20 18:16 Succinylcholine Chloride (Quelicin) Confirm Administered Dose 200 mg .ROUTE .STK-MED ONE Stop: 06/21/20 18:16 Tramadol HCl (Ultram) 100 mg PO ONETIME ONE Stop: 06/21/20 17:18 Last Admin: 06/21/20 17:22 Dose: 100 mg Documented by:
--- NOTE | 2020-06-24 11:53 | OR ---
DATE OF PROCEDURE: 06/21/2020 SURGEON: Lg Robles MD PREOPERATIVE DIAGNOSES: 1. Traumatic dehiscence, right knee skin incision. 2. Rupture of VMO tendon. 3. History of infected total knee arthroplasty. 4. Delayed wound healing with eschar. POSTOPERATIVE DIAGNOSES: 1. Traumatic dehiscence, right knee skin incision. 2. Rupture of VMO tendon. 3. History of infected total knee arthroplasty. 4. Delayed wound healing with eschar. PROCEDURES: 1. Irrigation and debridement, right knee. 2. Repair of VMO. 3. Partial closure of skin incision, right knee. ANESTHESIA: General. INDICATIONS: Neris is a 69-year-old female with a fairly complicated history relative to her right knee. She initially sustained a tibial plateau fracture, which went on to collapse, and eventually underwent total knee arthroplasty. Shortly after the arthroplasty, she had a fall onto her knee, resulting in a traumatic dehiscence of the wound. She underwent irrigation, debridement, and closure at that time. Following that, she had difficulty with intermittent superficial infections, which were treated with incision and drainage and antibiotics. She also had an area in the anterior inferior aspect of the incision with an eschar. Eventually developed a sinus tract with infection into the joint and underwent irrigation, debridement, synovectomy, and polyethylene exchange. Following that, she has been on IV antibiotics. Had difficulty with wound healing due to the eschar in the inferior aspect of the wound. Had been improving, but was in need of either chemical or surgical debridement. She unfortunately had another fall onto her knee earlier today, resulting in opening of the incision once again. She is brought to the operating room for irrigation, debridement, evaluation of the tendon and attempt at closure. Risks, benefits, potential complications of procedure were discussed, including the possibility that closure of the wound may not be possible and further wound care treatments may be necessary. DESCRIPTION OF PROCEDURE: After adequate anesthesia was obtained, patient was placed supine with a tourniquet about the right upper thigh. Right leg was prepped and draped in a sterile fashion. Tourniquet was applied, but is not elevated to assess blood supply to the edges of the skin. The wound is irrigated and evaluated. She is found to have a rupture of the VMO tendon, along with the skin dehiscence. Previous sutures in the area that tore through the tendon are removed. The incision in the skin is extended slightly for better access to the VMO and scar tissue between the skin and VMO was elevated in a plane. This allowed mobilization of the VMO back to the quadriceps tendon. The knee joint was thoroughly irrigated with pulse lavage. This was followed by about [id number] Betadine saline solution which is left within the joint for several minutes while the skin incision is debrided. The edges of the incision are sharply debrided with a 15 blade. The area of eschar in the inferior aspect of the wound is excised, and this resulted in a defect of about 2 cm in length and 1.5 cm in width. Another area just inferior to this has a smaller area of eschar, which is also excised. There is good bleeding tissue at the edges of the debridement. Wound is thoroughly irrigated once again. The knee was irrigated with pulse lavage. This was followed by another irrigation with Betadine which was left in place for approximately 3 minutes. Area was irrigated and the VMO was then repaired with PDS suture in interrupted fashion. The skin was closed with 2-0 Vicryl. Superior aspect of the incision was able to be closed. Inferiorly, a gap was present. Additional skin closure accomplished with use of 2-0 nylon with simple sutures proximally. Down over the patella and inferior aspect where the skin defect was, a tension-distributing suture in a [id number] configuration was utilized. This resulted in a defect of approximately 1.5 cm x 1.5 cm with exposed patellar tendon and an another area inferior to this of approximately 2 cm in length and 5 to 6 mm in width. This is also full-thickness skin loss and just over the tibial tubercle. Knee was dressed in a wet-to-dry fashion with saline- soaked gauze, 4x4s, ABD, and an Abdirahman bandage. Prior to irrigation, cultures were taken from the joint. Plan dressing change tomorrow and re-evaluation. At this point, anticipate using a wound VAC dressing in order to facilitate wound closure over the patellar tendon. She was taken from the operating room in stable condition. There were no complications. Lg Robles MD /[id number]
== END 2020-06-23 14:24 | disposition home or self-care (01) | DRG 909 ==
LOC: JP.ED 16:53 → JP.SDS 17:52 → JP.MS 20:18 → JP.SDS 06-22 11:30
PROVIDERS: ADMIT Specialist; ATTEND Specialist
PROC: 0HBKXZZ Excision of Right Lower Leg Skin, External Approach (ICD-10-PCS; principal; 2020-06-21)
PROC: 0LQQ0ZZ Repair Right Knee Tendon, Open Approach (ICD-10-PCS; 2020-06-21)
DX: S81.001A Unspecified open wound, right knee, initial encounter (principal); T81.33XA Disruption of traumatic injury wound repair, initial encounter; T84.53XA Infection and inflammatory reaction due to internal right knee prosthesis, initial encounter; T84.53XS Infection and inflammatory reaction due to internal right knee prosthesis, sequela; S86.912A Strain of unspecified muscle(s) and tendon(s) at lower leg level, left leg, initial encounter; H54.7 Unspecified visual loss; E78.00 Pure hypercholesterolemia, unspecified; I10 Essential (primary) hypertension; I27.20 Pulmonary hypertension, unspecified; K21.9 Gastro-esophageal reflux disease without esophagitis; G62.9 Polyneuropathy, unspecified; K29.70 Gastritis, unspecified, without bleeding; M19.90 Unspecified osteoarthritis, unspecified site; E61.1 Iron deficiency; F32.9 Major depressive disorder, single episode, unspecified; M34.1 CR(E)ST syndrome; Z85.820 Personal history of malignant melanoma of skin; D64.9 Anemia, unspecified; Z98.890 Other specified postprocedural states; E53.8 Deficiency of other specified B group vitamins; D50.9 Iron deficiency anemia, unspecified; I73.00 Raynaud's syndrome without gangrene; Z96.651 Presence of right artificial knee joint; Z96.649 Presence of unspecified artificial hip joint; Z20.828 Contact with and (suspected) exposure to other viral communicable diseases; W19.XXXA Unspecified fall, initial encounter; Z79.82 Long term (current) use of aspirin; Z98.49 Cataract extraction status, unspecified eye; Z79.899 Other long term (current) drug therapy; Z90.49 Acquired absence of other specified parts of digestive tract; Z88.1 Allergy status to other antibiotic agents; Z85.828 Personal history of other malignant neoplasm of skin; Z90.710 Acquired absence of both cervix and uterus
CPT/HCPCS: 36415; 80048; 85025; 86140; 87070; 87075; 87205; 96365; 96366; 99284; A9270 ×7; J0330; J1100; J2405; J2704; J3010; J3370; J3490; J7050; J7120; U0002; 87077; 97110-GP; J1885; J2270; J7030

== ENCOUNTER 2020-07-10 09:43 | Emergency (ER) | payer MEDICARE, OTHER ==
[2020-07-10 10:21] VITALS: BP 127/88; PULSE 64
--- NOTE | 2020-07-10 11:10 | EDM.PDOC ---
ED HPI GENERAL MEDICAL PROBLEM - General Chief Complaint: Lower Extremity Injury/Pain Stated Complaint: NATTY HELMS Time Seen by Provider: 07/10/20 10:15 Source of Information: Reports: Other (Per Dr. Helms) - History of Present Illness INITIAL COMMENTS - FREE TEXT/NARRATIVE: wound vac evaluation per Dr. Helms. Right Knee Pain Score (Numeric/FACES): 8 - Related Data Allergies Allergy/AdvReac Type Severity Reaction Status Date / Time ceftriaxone [From Rocephin] Allergy Swollen Verified 07/10/20 10:21 Tongue erythromycin base Allergy Hives Verified 07/10/20 10:21 Home Meds: Home Meds Aspirin [Ecotrin EC] 81 mg PO DAILY 07/16/17 [History] Flaxseed Oil [Flaxseed] 1,000 mg PO BID 07/16/17 [History] Furosemide [Lasix] 20 mg PO DAILY 07/16/17 [History] Gabapentin [Neurontin] 300 mg PO TID 07/16/17 [History] Glucosamine/D3/Boswellia Yael [Glucosamine Complex Tablet] 1 tab PO BID 07/16/17 [History] Losartan [Cozaar] 50 mg PO DAILY 07/16/17 [History] Multivitamin [Multivitamins] 1 tab PO DAILY 07/16/17 [History] Pantoprazole Sodium [Protonix] 40 mg PO DAILY 07/16/17 [History] Travoprost [Travatan Z 0.004% Ophth Soln] 1 drop EYEBOTH BEDTIME 07/16/17 [History] amLODIPine [Norvasc] 10 mg PO DAILY 07/16/17 [History] gemfibroziL [Lopid] 600 mg PO BID 07/16/17 [History] Acetaminophen [Tylenol Arthritis Pain] 650 mg PO Q12HR 11/21/18 [History] Citalopram [Citalopram HBr] 20 mg PO DAILY 11/21/18 [History] Naproxen 500 mg PO BID PRN 11/21/18 [History] [place]-3/DHA/Epa/Fish Oil [Fish Oil 1,000 mg Softgel] 1,000 mg PO DAILY 11/21/18 [History] Albuterol Sulfate [Proair Hfa] 1 - 2 puff INH Q4H PRN 11/20/19 [History] Isosorbide Mononitrate [Imdur] 30 mg PO BEDTIME 11/20/19 [History] Cyanocobalamin (Vitamin B12) [Vitamin B12] 1,000 mcg IJ .Q3M 12/18/19 [History] Zoledronic Acid in Water [Reclast] 1 infus.set IV .YEARLY 04/13/20 [History] Naproxen 500 mg PO BID 06/21/20 [History] Levofloxacin 750 mg PO DAILY 14 Days #14 tablet 06/23/20 [Rx] Past Medical History HEENT History: Reports: Cataract, Impaired Vision Cardiovascular History: Reports: High Cholesterol, Hypertension Respiratory History: Reports: Other (See Below) Other Respiratory History: pulmonary hypertension Gastrointestinal History: Reports: Gastritis, GERD Genitourinary History: Reports: None HOME FURNISHINGS SALES REPRESENTATIVE History: Reports: Endometriosis, Polycystic Ovaries Musculoskeletal History: Reports: Other (See Below) Other Musculoskeletal History: L hip and knee pain Neurological History: Reports: Neuropathy, Peripheral, Vertigo Other Neuro History: right vestibular nerve cut Psychiatric History: Reports: Depression Endocrine/Metabolic History: Reports: None Hematologic History: Reports: Anemia, B12 Deficiency, Iron Deficiency Immunologic History: Reports: Other (See Below) Other Immunologic History: CREST syndrome, cyclic edema Oncologic (Cancer) History: Reports: Malignant Melanoma, Squamous Cell Carcinoma Dermatologic History: Reports: Melanoma Other Dermatologic History: Raynaud's - Infectious Disease History Infectious Disease History: Reports: Measles, Mumps, Other (See Below) Other Infectious Disease History: lymes disease - Past Surgical History HEENT Surgical History: Reports: Cataract Surgery, Oral Surgery GI Surgical History: Reports: Appendectomy, Colonoscopy, EGD Female Surgical History: Reports: Hysterectomy Endocrine Surgical History: Reports: None Neurological Surgical History: Reports: None Musculoskeletal Surgical History: Reports: Joint Replacement, Other (See Below) Other Musculoskeletal Surgeries/Procedures:: R tibia plateau Fx, fell 09/06/19. R knee abscess. right knee I and D 06/21/20 Dermatological Surgical History: Reports: Skin Biopsy Social & Family History - Family History Family Medical History: Noncontributory - Tobacco Use Smoking Status *Q: Former Smoker Used Tobacco, but Quit: Yes Month/Year Tobacco Last Used: 40 years ago - Caffeine Use Caffeine Use: Reports: Coffee - Recreational Drug Use Recreational Drug Use: No Review of Systems - Review of Systems Review Of Systems: See Below (Patient evaluation per Dr. Helms) ED EXAM, GENERAL - Physical Exam Exam: See Below (Patient evaluation per Dr. Helms) Course - Vital Signs Last Recorded V/S: Last Vital Signs Temp 36.8 C 07/10/20 10:14 Pulse 64 07/10/20 10:14 Resp 16 07/10/20 10:14 BP 127/88 07/10/20 10:14 Pulse Ox 94 L 07/10/20 10:14 - Orders/Labs/Meds Orders: Active Orders 24 hr Category Date Time Status CULTURE ANAEROBIC [RM] Stat Lab 07/10/20 11:00 Received CULTURE WOUND + SMEAR [RM] Stat Lab 07/10/20 11:00 Results Departure - Departure Time of Disposition: 11:10 Disposition: Home, Self-Care 01 Clinical Impression: Visit for wound care - Discharge Information Instructions: Negative Pressure Wound Therapy Home Guide Referrals: PCP,None [Primary Care Provider] - Forms: ED Department Discharge Additional Instructions: Follow up with Dr. Helms as directed. Return as needed. Sepsis Event Note (ED) - Evaluation Sepsis Screening Result: No Definite Risk - Focused Exam Vital Signs: Vital Signs Temp Pulse Resp BP Pulse Ox 07/10/20 10:14 36.8 C 64 16 127/88 94 L - Assessment/Plan Assessment:: Patient evaluation per Dr. Helms. Plan: Follow up with Dr. Helms as directed. Return as needed.
== END 2020-07-10 11:18 | disposition home or self-care (01) ==
LOC: JP.ED 09:43
DX: Z48.817 Encounter for surgical aftercare following surgery on the skin and subcutaneous tissue (principal); E78.00 Pure hypercholesterolemia, unspecified; K21.9 Gastro-esophageal reflux disease without esophagitis; G62.9 Polyneuropathy, unspecified; F32.9 Major depressive disorder, single episode, unspecified; Z87.891 Personal history of nicotine dependence; Z79.82 Long term (current) use of aspirin; Z79.899 Other long term (current) drug therapy; Z88.1 Allergy status to other antibiotic agents
CPT/HCPCS: 87070; 87075; 87077; 87205; 99282; 99283

== ENCOUNTER 2021-01-28 08:36 | Day surgery (SDC) | payer MEDICARE, OTHER ==
[2021-01-28] MEDS ORDERED: ceFAZolin 2 GM in Sodium Chloride 0.9% 50 ML IV ONE (09:30)
[2021-01-28] MEDS ORDERED: Sodium Chloride 0.9% 1,000 ML IV SCH (09:30)
[2021-01-28] MEDS ORDERED: Lidocaine 1% with EPINEPHrine 1:100,000 50 ML MDV ONE (10:25)
[2021-01-28] MEDS ORDERED: Lidocaine 2% Jelly 10 ML Urojet ONE (10:25)
[2021-01-28] MEDS ORDERED: Bupivacaine 0.5% 50 ML MDV ONE (10:25)
[2021-01-28] MEDS ORDERED: Midazolam 1 MG/ML 2 ML SDV ONE (10:40)
[2021-01-28] MEDS ORDERED: fentaNYL 100 MCG/2 ML SDV ONE (10:40)
[2021-01-28] MEDS ORDERED: Propofol 200 MG/20 ML SDV ONE ×2 (10:40→11:25)
[2021-01-28] MEDS ORDERED: fentaNYL 100 MCG/2 ML SDV IVPUSH ONE (12:15)
[2021-01-28] MEDS ORDERED: hydrOXYzine HCL 100 MG/2 ML SDV IM ONE (12:17)
--- NOTE | 2021-01-28 12:26 | OR ---
DATE OF PROCEDURE: 01/28/2021 SURGEON: Xavi Ch MD PROCEDURES: 1. Left leg debridement, full thickness 11.3 cm x 8.7 cm x 1.1 cm, full-thickness. 2. Wound VAC placement greater than 50 cm2. 3. Escharotomy in preparation for skin graft to the size described as in #2. COMPLICATIONS: None. COMMERCIAL PRODUCER: None. ANESTHESIA: MAC. RISKS: Risks, benefits, alternatives, and limitations including, but not limited to infection, bleeding, chronic wounds, chronic pain were explained to the patient who wished to proceed. PROCEDURE IN DETAIL: The patient was placed in right lateral decubitus position. The eschar was removed using a Weck blade. This was performed to the depth of 12,000 until there was some mild petechiae hemorrhaging. There was no evidence of infection during this evaluation, however, the skin was definitely necrotic. Debridement continued through the entire area described above. Combination of escharotomy and debridement was continued until the healthy tissue was noted. This was then thoroughly irrigated. The wound VAC was then placed with black sponge in a standard fashion avoiding normal skin contact, set to 120 mmHg pressure. The patient tolerated the procedure well. Xavi Ch MD /[id number]
[2021-01-28] MEDS ORDERED: Acetaminophen/HYDROcodone 325-5 MG Tab PO PRN ×3 (12:35→12:50)
[2021-01-28] MEDS ORDERED: fentaNYL 100 MCG/2 ML SDV IVPUSH PRN (12:46)
[2021-01-28 15:01] VITALS: BP 97/68; PULSE 99
--- NOTE | 2021-02-11 08:42 | OR ---
DATE OF PROCEDURE: 01/28/2021 SURGEON: Xavi Ch MD ADDENDUM: PREOPERATIVE DIAGNOSIS: Chronic wounds, left leg, requiring debridement. POSTOPERATIVE DIAGNOSIS: Chronic wounds, left leg, requiring debridement. Xavi Ch MD /[id number]
== END 2021-01-28 15:04 | disposition home or self-care (01) ==
LOC: JP.SDS 08:36
PROVIDERS: ATTEND Surgery
DX: L97.229 Non-pressure chronic ulcer of left calf with unspecified severity (principal); I10 Essential (primary) hypertension
CPT/HCPCS: 11042; A9270; J2250; J2704; J3010; J3410; J3490; J7030

== ENCOUNTER 2024-04-16 12:51 | Emergency (ER) | payer MEDICARE, OTHER ==
[2024-04-16 13:29] LABS: BASOPHILS ABSOLUTE AUTO 0.06 K/uL (0.00-0.10); BASOPHILS PERCENT AUTO 1.2 % (0.1-1.3); EOSINOPHILS ABSOLUTE AUTO 0.14 K/uL (0.00-0.40); EOSINOPHILS PERCENT AUTO 2.7 % (0.0-5.4); IMMATURE GRAN PERCENT AUTO 0.4 % (0.0-0.7); LYMPHOCYTES ABSOLUTE AUTO 0.96 K/uL (0.8-3.3); LYMPHOCYTES PERCENT AUTO 18.6 % (11.4-47.7); MEAN CORPUSCULAR HGB CONC 32.4 g/dL (31.6-35.5); MEAN CORPUSCULAR VOLUME 86.2 fL (81.4-99.0); MONOCYTES ABSOLUTE AUTO 0.62 K/uL (0.20-0.90); NEUTROPHILS ABSOLUTE AUTO 3.35 K/uL (1.0-7.6); NEUTROPHILS PERCENT AUTO 65.1 % (40.0-78.1); PLATELET COUNT,PLT 141 K/uL (130-375); RED BLOOD CELL COUNT 4.29 M/uL (3.77-5.24); WHITE BLOOD CELL COUNT,WBC 5.2 K/uL (3.2-11.0)
[2024-04-16 13:34] LABS: IMMATURE GRAN ABSOLUTE AUTO 0.02 K/uL (0.00-0.23)
[2024-04-16 13:46] LABS: INR 1.4; PROTHROMBIN TIME 13.8 sec (9.2-10.6)
[2024-04-16 13:51] LABS: A/G RATIO 0.9 (1.2-2.2); ALANINE AMINOTRANSFERASE,ALT 19 U/L (12-78); ALBUMIN 3.1 g/dL (3.4-5.0); ALKALINE PHOSPHATASE 100 U/L (46-116); ASPARTATE AMNIOTRANSFERASE,AST 30 U/L (15-37); BILIRUBIN TOTAL 0.8 mg/dL (0.2-1.0); BLOOD UREA NITROGEN,BUN 17 mg/dL (7-18); CALCIUM 8.9 mg/dL (8.5-10.1); CARBON DIOXIDE,CO2 26 mmol/L (21-32); CHLORIDE,CL 101 mmol/L (100-108); CREATININE 0.8 mg/dL (0.6-1.0); EST CRCL DRUG DOSING (CG) 49.53 mL/min; ESTIMATED GFR 78 mL/min (>60); GLUCOSE RANDOM 99 mg/dL (74-106); POTASSIUM,K 5.2 mmol/L (3.6-5.2); PROTEIN TOTAL,TP 6.5 g/dL (6.4-8.2); SODIUM,NA 134 mmol/L (140-148)
[2024-04-16 13:52] LABS: ANION GAP 12.2 mmol/L (5.0-14.0)
[2024-04-16 16:04] VITALS: BP 98/54; PULSE 49
== END 2024-04-16 16:00 ==
LOC: JP.ED 12:51
DX: I44.2 Atrioventricular block, complete (principal); I11.0 Hypertensive heart disease with heart failure; I50.9 Heart failure, unspecified; K21.9 Gastro-esophageal reflux disease without esophagitis; Z88.1 Allergy status to other antibiotic agents; Z79.899 Other long term (current) drug therapy
CPT/HCPCS: 36415; 80053; 85025; 85610; 99284